=== PATIENT | female | born 1965 | race Caucasian/White ===

== ENCOUNTER → 2017-12-02 07:36 | Outpatient (CLI) | payer OTHER, SELFPAY ==
--- NOTE | 2017-12-02 | DI.ECHO.S_ITS ---
[facility]---------+ [facility] +---------+ : : [address] : : : : [id number] : : : : Phone: [phone]+ Echocardiogram Report + + :Name: NIKOLAI MOONEY Study Date: 12/02/2017 Height: 59 in : :[facility] Weight: 187 lb : : Gender: Female BSA: 1.8 m2 : :: 1965 Age: 52 yrs BP: 110/70 mmHg: :Reason For Study: Palpitations : :Ordering Physician: Cash : :Alfred Hatch Performed By: Jennifer Brandon : + + Interpretation Summary 1) Normal left ventricular size with mildly to moderately reduced systolic function (EF 40- 45%). 2) There is a significant dyssynchronous contraction pattern, consistent with a conduction abnormality. Inferior wall is hypokinetic. 3) Normal right ventricular size and function. 4) No significant valvular abnormalities. 5) Compared to the Echo done 09/17/2012, LV function has decreased from low normal to mildly to moderately reduced on this study. Procedure: A two-dimensional transthoracic echocardiogram with color flow and Doppler was performed. The study quality was technically adequate. Comparison is made with the echocardiogram of 09/17/2012. The patient was in normal sinus rhythm during the exam. The patient had a bundle branch block rhythm during the exam. Left Ventricle: The left ventricle is normal in size. There is normal left ventricular wall thickness. Left ventricular systolic function is mild to moderately reduced. The ejection fraction is estimated to be 40-45%. There is a significant dyssynchronous contraction pattern, consistent with a conduction abnormality. Assessment of diastolic parameters indicates a relaxation abnormality of the left ventricle, consistent with normal filling pressures. Right Ventricle: The right ventricle is normal in size and function. Atria: Both atria are normal in size. There is no Doppler evidence for an interatrial shunt. Mitral Valve: The mitral valve is normal in structure and function. There is trace mitral regurgitation. Aortic Valve: The aortic valve is not well visualized. There is no aortic valve stenosis. No aortic regurgitation is present. Tricuspid Valve: The tricuspid valve is not well visualized, but is grossly normal. There is a trace or physiologic amount of tricuspid regurgitation. The right ventricular systolic pressure is estimated at least 26 mmHg assuming a right atrial pressure of 8 mm Hg. Pulmonic Valve: The pulmonic valve is not well visualized. There is a trace or physiologic amount of pulmonic regurgitation. Great Vessels: The aortic root is normal size. The ascending aorta is normal in size. The aortic arch could not be visualized. The IVC is of normal diameter and collapses less than 50% with a sniff. This suggests a right atrial pressure of 8 mm Hg. Pericardium/ Pleura There is no pericardial effusion. MMode/2D Measurements & Calculations LVIDd: 5.3 cm LVOT diam: 2.0 cm LVIDs: 4.3 cm Ao root diam: 2.5 cm FS: 19.5 % asc Aorta Diam: 3.1 cm EPSS: 1.3 cm IVSd: 0.63 cm LVPWd: 0.84 cm LV mauro. diameter/BSA (cm/m^2): 3.0 LV sys. diameter/BSA (cm/m^2): 2.4 LA A2 area: 17.3 cm2 RA long axis: 4.4 cm LA A4 area: 18.7 cm2 RA area: 13.7 cm2 LA length (vol): 5.1 cm RA vol: 35.9 ml LA vol: 54.3 ml RA : 20.0 ml/m2 LA vol index: 30.3 ml/m2 IVC diam: 1.5 cm RVD1 (basal): 2.5 cm RVD2 (mid): 2.3 cm TAPSE: 2.3 cm Doppler Measurements & Calculations Ao V2 max: 156.6 cm/sec LVOT Max Fabio: 85.0 cm/sec Ao V2 mean: 105.3 cm/sec LV V1 max P.9 mmHg Ao max P.8 mmHg LV V1 VTI: 14.9 cm Ao mean P.2 mmHg TORIE(I,D): 1.7 cm2 Ao V2 VTI: 28.0 cm TORIE(V,D): 1.8 cm2 sev ratio: 0.53 TORIE indexed to BSA (cm^2/m^2): 0.98 MV E max fabio: 54.7 cm/sec TR max fabio: 208.9 cm/sec MV A max fabio: 75.6 cm/sec TR max P.5 mmHg MV E/A: 0.72 PA V2 max: 83.7 cm/sec Med Peak E' Fabio: 6.9 cm/sec PA V2 mean: 53.9 cm/sec E/E' med: 7.9 PA mean P.3 mmHg Lat Peak E' Fabio: 8.8 cm/sec PA Accel Time: 0.08 sec E/E' lat: 6.2 E/e' average: 7.0 MV dec time: 0.22 sec MV P1/2t: 65.2 msec MV /2t max fabio: 54.9 cm/sec MVA(2t): 3.4 cm2 Reading Physician:04:37 PM
== END ==
PROVIDERS: PCP Family Medicine; Visit Provider Hospitalist
DX: R00.2 Palpitations (principal)
CPT/HCPCS: 93306

== ENCOUNTER → 2018-09-02 14:36 | Outpatient (CLI) | payer OTHER, SELFPAY ==
--- NOTE | 2018-09-02 | DI.ECHO.S_ITS ---
[facility] [place] +---------+ Hospital +---------+ : : [address] : [address] [place] : : : : [id number] : : : : Phone: [phone]+ Echocardiogram Report + + :Name: NIKOLAI MOONEY Study Date: 09/02/2018 Height: 60 in : :[facility] Location: [facility] Weight: 188 lb : : Gender: Female BSA: 1.8 m2 : :: 1965 Age: 53 yrs BP: 122/88 mmHg: :Reason For Study: Left bundle-branch block : :Ordering Physician: Cash : :Alfred Hatch Performed By: Krystle Page : + + Interpretation Summary 1) Normal left ventricular size with borderline reduced systolic function (EF about 50%). 2) There is a significant dyssynchronous contraction pattern, consistent with a conduction abnormality. 3) Normal right ventricular size and function. 4) No significant valvular abnormalities. 5) Compared to the Echo done 12/02/2017, LVEF has improved from 40-45% to about 50% on this study. Procedure: A two-dimensional transthoracic echocardiogram with color flow and Doppler was performed. The study quality was technically adequate. The patient had a bundle branch block rhythm during the exam. The heart rate ranged between 69-80 bpm during the study. Left Ventricle: The left ventricle is normal in size. Left ventricular systolic function is borderline reduced. Left ventricular ejection fraction is estimated to be 50 +/- 5%. There is a significant dyssynchronous contraction pattern, consistent with a conduction abnormality. Right Ventricle: The right ventricle is normal in size and function. Atria: The left atrium is mildly dilated. Right atrial size is normal. There is no Doppler evidence for an interatrial shunt. Mitral Valve: The mitral valve is normal in structure and function. There is trace mitral regurgitation. Aortic Valve: The aortic valve is trileaflet. The aortic valve opens well. No aortic regurgitation is present. Tricuspid Valve: The tricuspid valve is normal in structure and function. There is a trace or physiologic amount of tricuspid regurgitation. Pulmonary artery pressures cannot be estimated because of the lack of a measurable TR jet velocity. Pulmonic Valve: The pulmonic valve is not well visualized. Great Vessels: The aortic root is normal size. The ascending aorta is normal in size. The pulmonary artery is not well visualized, but is probably normal size. The IVC is of normal diameter and collapses greater than 50% with a sniff. This suggests a low right atrial pressure of 3 mm Hg. Pericardium/ Pleura There is no pericardial effusion. There is no pleural effusion. MMode/2D Measurements & Calculations LVIDd: 5.0 cm LVOT diam: 2.1 cm LVIDs: 3.5 cm Ao root diam: 2.8 cm FS: 30.3 % asc Aorta Diam: 3.2 cm EPSS: 0.59 cm IVSd: 0.66 cm LVPWd: 0.83 cm LV mauro. diameter/BSA (cm/m^2): 2.7 LV sys. diameter/BSA (cm/m^2): 1.9 LA A2 area: 20.9 cm2 RA long axis: 4.7 cm LA A4 area: 21.3 cm2 RA area: 16.0 cm2 LA length (vol): 5.8 cm RA vol: 46.2 ml LA vol: 65.2 ml RA : 25.4 ml/m2 LA vol index: 35.8 ml/m2 IVC diam: 2.0 cm RVD1 (basal): 3.8 cm Doppler Measurements & Calculations Ao V2 max: 198.4 cm/sec LVOT Max Fabio: 97.0 cm/sec Ao V2 mean: 138.0 cm/sec LV V1 max P.8 mmHg Ao max P.8 mmHg LV V1 VTI: 16.7 cm Ao mean P.4 mmHg TORIE(I,D): 1.7 cm2 Ao V2 VTI: 35.2 cm TORIE(V,D): 1.8 cm2 sev ratio: 0.48 TORIE indexed to BSA (cm^2/m^2): 0.94 MV E max fabio: 84.9 cm/sec PA V2 max: 121.6 cm/sec MV A max fabio: 81.3 cm/sec PA V2 mean: 89.2 cm/sec MV E/A: 1.0 PA mean P.4 mmHg Med Peak E' Fabio: 7.1 cm/sec E/E' med: 12.0 Lat Peak E' Fabio: 12.3 cm/sec E/E' lat: 6.9 E/e' average: 9.5 MV dec time: 0.19 sec MV P1/2t: 55.8 msec MV P1/2t max fabio: 84.9 cm/sec SV(LVOT): 60.1 ml MVA(P1/2edward): 3.9 cm2 Reading Physician:04:20 PM
== END ==
PROVIDERS: PCP Family Medicine; Visit Provider Hospitalist
DX: I44.7 Left bundle-branch block, unspecified (principal)
CPT/HCPCS: 93307

== ENCOUNTER 2018-10-06 12:49 | Day surgery (SDC) | payer OTHER, SELFPAY ==
--- NOTE | 2018-10-06 | PATH_ITS ---
[facility] Accession Number: [id number] . 01 Material submitted: . PART A: esophagus - ESOPHAGEAL BIOPSIES PART B: gastrointestinal site - GASTRIC BIOPSIES . 01 Clinical history: . B: GASTRIC BIOPSIES FOR H.PYLORI . 02 Diagnosis: A. Specimen Designated Esophageal Biopsies: Fragments of gastric antral and fundic mucosa with hyperemia, but negative for significant inflammation (see comment). Negative for evidence of Helicobacter on H/E stain. Negative for intestinal metaplasia. Negative for dysplasia and malignancy. . B. Specimen Designated Gastric Biopsies: Fragments of squamous epithelium with no glandular epithelium identified, negative for atypia (see comment). Negative for squamous intraepithelial eosinophils. [facility]/10/08/2018 . 02 Comment: It appears that these two specimens were switched at the time of biopsy with part A designated esophageal biopsies, but actually representing gastric biopsies and part B designated gastric biopsies actually representing esophageal biopsies. . 02 Electronically signed: . Juan Ladd MD, Pathologist NPI- [id number] . 01 Gross description: . Part A: ESOPHAGEAL BIOPSIES: Received in formalin are 2 fragment(s) of olsen, soft tissue measuring 0.5 x 0.3 x 0.1 cm to 0.2 x 0.2 x 0.1 cm submitted entirely in 1 cassette(s) Part B: GASTRIC BIOPSIES: Received in formalin are 2 fragment(s) of olsen, soft tissue measuring 0.3 x 0.2 x 0.1 cm to 0.2 x 0.1 x 0.1 cm submitted entirely in 1 cassette(s) /CKI /CKI . 02 Pathologist provided ICD-10: R10.13 . 02 CPT . 553419, [id number] Performed at: [address] [place] [address] [address], [place], [place] [id number] MD Mando Hernandez MD Phone: [phone] Performed at: 02 [facility] [place] [address] [place] [id number] MD Roxana Aden MD Phone: [phone]
[2018-10-06 14:00] VITALS: BP 110/65; PULSE 77; RESP 16; TEMP 37.1; O2SAT 97; BMI 37.6
[2018-10-06] MEDS: SODIUM CHLORIDE 0.9% 1,000 ML 100 ML IV (14:10)
--- NOTE | 2018-10-06 14:35 | PM.HP.1 ---
History of Present Illness Date Patient Seen: 10/06/18 Time Patient Seen: 14:35 Chief complaint: [id number] Narrative: Dysphagia Patient History Medical History (Updated 10/06/18 @ 14:36 by Micky Pearson MD) Anxiety (Acute) Arthritis (Acute) Celiac disease (Acute) Depression (Acute) GE reflux (Acute) History of colon polyps (Acute) Social History household members: friend(s) Family & Social History Social History: household members friend(s) Meds Home Medications Medication Instructions Recorded Confirmed Type lisinopril 20 mg PO QDAY #0 11/12/10 10/06/18 History ESOMEPRAZOLE SODIUM (NEXIUM) 20 mg PO BID #0 04/15/11 10/06/18 History LACTOBACILLUS ACIDOPHILUS 1 cap/day PO DAILY #0 04/15/11 10/06/18 History (#ACIDOPHILUS) [MEGAZYME] PO TID #0 04/15/11 History tramadol 50 mg PO PRN #0 04/15/11 10/06/18 History [GOODY'S POWDER] #0 06/25/16 History verapamil 40 mg PO DAILY 10/06/18 10/06/18 History Allergies Allergy/AdvReac Type Severity Reaction Status Date / Time gluten [GLUTEN] Allergy Unknown Verified 10/06/18 13:54 Exam Vital Signs (past 8 hours): - 10/06/18 14:00 Temperature 98.7 F Pulse Rate 77 Respiratory Rate 16 Blood Pressure 110/65 Pulse Oximetry 97 Oxygen Delivery Method Room Air Narrative Exam Narrative: Oropharynx free of lesions Chest clear to auscultation percussion Cardiac exam reveals no S3 or murmur Assessment & Plan Assessment & Plan narrative: Dysphagia rule out mechanical cause such as a Schatzki's ring or peptic stricture or eosinophilic esophagitis. Risks, benefits, alternatives have been explained.
--- NOTE | 2018-10-06 14:39 | PM.OP.ENDO ---
Operative Date/Time/Diagnoses Date of procedure: 10/06/18 Time of procedure: 14:39 Pre-op diagnosis: See indication and findings Procedure & Clinicians Study performed: EGD Same procedure as scheduled: Yes Indications: Dysphagia Surgeon: Micky Pearson Procedure Notes Procedure in detail: After informed consent was obtained the patient was placed in left lateral decubitus position. The video upper scope placed in the oropharynx with the patient's health swallowed into the esophagus. The esophagus stomach and duodenum were carefully examined. On withdrawal, retroflexed view the GE junction was performed. The scope was removed. The patient tolerated procedure well. Blood loss none Complications none Sedation, MAC Findings 1. Normal esophagus with no evidence of esophagitis. There were however very faint longitudinal grooves and therefore biopsies were taken to rule out eosinophilic esophagitis 2. There may have been a slight Schatzki's ring distally and therefore was elected to perform dilation with [address] without difficulty.. 3. Patchy striped erythema in the antrum. Biopsies taken to rule out Helicobacter 4. Normal duodenal bulb and sweep We will await biopsy results and see how she does with the dilation. We will be in touch by telephone.
[2018-10-06 15:45] VITALS: BP 98/61; PULSE 93; RESP 21; TEMP 36.8; O2SAT 91
[2018-10-06 15:51] VITALS: BP 109/57; PULSE 80; RESP 13; O2SAT 93
[2018-10-06 15:53] VITALS: BP 122/54; PULSE 82; RESP 13; O2SAT 93
[2018-10-06 16:02] VITALS: BP 121/74; PULSE 73; RESP 14; O2SAT 95
== END 2018-10-06 16:21 | disposition home or self-care (01) ==
LOC: ENDO 12:56
PROVIDERS: PCP Family Medicine; Visit Provider Internal Medicine Gastroenterology
PROC: 0DJ08ZZ Inspection of Upper Intestinal Tract, Via Natural or Artificial Opening Endoscopic (ICD-10-PCS; CPT 43235; principal; 2018-10-06 15:00)
DX: R13.10 Dysphagia, unspecified (principal); F41.9 Anxiety disorder, unspecified; K90.0 Celiac disease; F32.9 Major depressive disorder, single episode, unspecified; K21.9 Gastro-esophageal reflux disease without esophagitis
CPT/HCPCS: 43248; 43239; 88305; J2704; J3010

== ENCOUNTER → 2018-12-28 16:37 | Outpatient (CLI) | payer OTHER, SELFPAY ==
--- NOTE | 2018-12-28 | DI.MRI.S_ITS ---
PROCEDURE: MR WRIST LT WO CON INDICATIONS: PAIN IN LEFT FINGERS TECHNIQUE: Noncontrast coronal proton density fast spin echo and T2 fast spin echo with fat saturation; coronal 3-D gradient echo, axial T1 spin echo and T2 fast spin echo with fat saturation, sagittal T1 spin echo through the wrist. COMPARISON: None. FINDINGS: Image quality: Excellent. Bones and cartilage: Trapezium is not visualized with susceptibility artifact seen in the adjacent first metacarpal base concerning for prior trapezial resection, clinical correlation is recommended. Diffuse osteoarthritic changes throughout carpal bones are seen with extensive marrow edema involving scaphoid, lunate, trapezoid, capitate and hamate. No discrete fracture line is identified. Intraosseous cyst formation involving the proximal scaphoid, capitate, lunate and hamate are seen. There is widening of scapholunate interval with slight proximal migration of capitate. Dorsal tilting of the lunate is also noted suggestive of dorsal intercalated segment instability. No acute fracture or dislocation is seen. Osteoarthritic changes are noted throughout wrist joints. Carpal ligaments: There is suggestion of ruptured scapholunate ligamen. Lunotriquetral ligament is intact. In the absence of intra-articular contrast, the extrinsic carpal ligaments are not well identified. On sagittal images, the pisohamate ligament appears intact. Triangular fibrocartilage complex: There is signal abnormality involving central and lateral portion of triangular fibrocartilage suggestive of triangular fibrocartilage tear near its radial insertion.. The adjacent meniscal homolog appears normal in the absence of intra-articular contrast. The extensor carpi ulnaris tendon is normal in location and morphology. Tendons and soft tissues: The carpal tunnel structures appear normal, including the median nerve. The ulnar nerve appears normal within Guyon's canal. All six extensor tendon compartments demonstrate normal morphology, without pathologic tendon sheath fluid. No soft tissue ganglion cysts. IMPRESSION: 1. Suggestion of prior resection of trapezium, suggest clinical correlation. 2. Osteoarthritic changes throughout wrist joints. Extensive marrow edema throughout visualized carpal bones with no discrete fracture line seen suggestive of stress reaction. Intraosseous cyst formation in proximal scaphoid, lunate, capitate and hamate are seen, erosive changes secondary to inflammatory arthropathy cannot be excluded. No definite acute fracture or dislocation. 3. Torn scapholunate ligament with widening of scapholunate interval and proximal migration of capitate suggestive of scapholunate advanced collapse (SLAC). There is also dorsal tilting of the lunate with suggestion of dorsal into dilated segment instability (DISI). 4. Suggestion of tracheal fibrocartilage tear near its radial insertion. Wrist tendons are grossly intact. Dictated by: Rick Mcdaniel M.D. on 12/30/2018 at 11:05 Approved by: Rick Mcdaniel M.D. on 12/30/2018 at 13:35
--- NOTE | 2018-12-28 | DI.MRI.S_ITS ---
PROCEDURE: MR HAND LT WO CON INDICATIONS: PAINB IN LEFT FINGERS TECHNIQUE: Coronal and axial T1 spin echo and T2 fast spin echo with fat saturation. Post-contrast coronal and axial T1 spin echo with fat saturation images through the left hand and wrist. COMPARISON: None. FINDINGS: Image quality: Excellent. Bones and cartilage: Extensive marrow edema throughout carpal bones are seen with suggestion of dorsal intercalated segment instability and possible scapholunate advance collapse better evaluated on MR of wrist study. Osteophytic changes and postsurgical changes are noted at first metacarpal base. Osteoarthritic changes are noted throughout MCP joints and interphalangeal joints. No gross bony erosive changes are noted. No edema or fracture. Synovium: No abnormal synovial thickening is seen. No significant joint fluid is seen in MCP joints or interphalangeal joints. Soft tissues: Flexor and extensor tendons of fingers are grossly intact. Medial and lateral collateral ligaments of interphalangeal joints and MCP joints are grossly intact. IMPRESSION: 1. Please correlate with MRI of left wrist for further evaluation of internal derangement within the wrist. 2. No fracture or dislocation in the metacarpal bones or phalanges. No bony erosive changes are seen. 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 3. Tendons and ligaments are grossly intact. 4. Post surgical changes involving first metacarpal base. Dictated by: Rick Mcdaniel M.D. on 12/30/2018 at 13:40 Approved by: Rick Mcdaniel M.D. on 12/30/2018 at 13:46
== END ==
PROVIDERS: PCP Family Medicine; Visit Provider Family Medicine
DX: M79.645 Pain in left finger(s) (principal); S63.592A Other specified sprain of left wrist, initial encounter
CPT/HCPCS: 73218; 73221

== ENCOUNTER → 2019-11-03 12:02 | Outpatient (CLI) | payer OTHER, SELFPAY ==
--- NOTE | 2019-11-03 | DI.MG.S_ITS ---
BILATERAL DIGITAL SCREENING MAMMOGRAM 3D/2D WITH CAD: 11/03/2019 CLINICAL: Routine screening. Family history of breast cancer. Comparison is made to exams dated: 12/25/2017 mammogram, 02/21/2015 mammogram, 12/27/2014 mammogram, and 02/23/2012 mammogram - [facility]. There are scattered fibroglandular elements in both breasts. Current study was also evaluated with a Computer Aided Detection (CAD) system. No significant masses, calcifications, or other findings are seen in either breast. There has been no significant interval change. IMPRESSION: NEGATIVE There is no mammographic evidence of malignancy. A 1 year screening mammogram is recommended. This exam was interpreted at Station ID: [id number]. NOTE: For mammograms, a report in lay terms will be sent to the patient. Approximately 15% of breast malignancies will not be visualized mammographically. In the management of a palpable breast mass, a negative mammogram must not discourage biopsy of a clinically suspicious lesion. Electronically Signed By: Abi haynes/catalina:11/03/2019 13:47:44 letter sent: Normal Exam ACR BI-RADS Category 1: Negative [id number]
== END ==
PROVIDERS: PCP Family Medicine; Referring Provider Family Medicine; Visit Provider Family Medicine
DX: Z12.31 Encounter for screening mammogram for malignant neoplasm of breast (principal); Z80.3 Family history of malignant neoplasm of breast
CPT/HCPCS: 77063; 77067

== ENCOUNTER 2020-02-06 19:05 | Observation (INO) | payer OTHER, SELFPAY ==
[2020-02-06] VITALS (27 sets, daily range): BP systolic 120–166; BP diastolic 58–88; PULSE 76–116; RESP 11–43; TEMP 36.7; O2SAT 93–99; BMI 39.4
--- NOTE | 2020-02-06 19:06 | DI.RAD.S_ITS ---
PROCEDURE: XR CHEST 1V INDICATIONS: Chest Pain TECHNIQUE: One view of the chest was acquired. COMPARISON: [facility], CHEST 1 VIEW, 06/25/2016, 17:15. [facility], CHEST 2 VIEW, 06/08/2015, 14:56. FINDINGS: Surgical changes and devices: None. Lungs and pleura: Lungs are clear. No pleural effusions or pneumothorax. Mediastinum: Mediastinal contours appear normal. Heart size is normal. Bones and chest wall: No suspicious bony lesions. Overlying soft tissues appear unremarkable. IMPRESSION: Normal for age, source of current chest pain symptoms is not seen. Dictated by: Roger Alvarado M.D. on 02/06/2020 at 19:36 Approved by: Roger Alvarado M.D. on 02/06/2020 at 19:37
--- NOTE | 2020-02-06 19:12 | ED_ITS ---
HPI - Chest Pain General Chief Complaint: Chest Pain Stated Complaint: Chest Pain Time Seen by Provider: 02/06/20 19:06 Source: EMS Mode of arrival: EMS Limitations: no limitations History of Present Illness HPI narrative: 54-year-old female nonsmoker with history of hypertension and hyperlipidemia as well as GERD and anxiety presents with a chief complaint of retrosternal chest pressure that woke her from sleep about 1 hour prior to arrival and seems to have navigated to the left side of her chest. She denies any obvious provocation or palliation. She denies any exertional symptoms. She is not dizzy nor weak or lightheaded. She denies any unexplained diaphoresis or shortness of breath. She was given full-dose aspirin prior to her arrival. She has known history of LBBB and prehospital EKG shows none of Sgarbossa's criteria suggested ischemic disease Related Data Home Medications Medication Instructions Recorded Confirmed lisinopril 20 mg PO QDAY #0 11/12/10 10/06/18 ESOMEPRAZOLE SODIUM (NEXIUM) 20 mg PO BID #0 04/15/11 10/06/18 LACTOBACILLUS ACIDOPHILUS 1 cap/day PO DAILY #0 04/15/11 10/06/18 (#ACIDOPHILUS) [MEGAZYME] PO TID #0 04/15/11 tramadol 50 mg PO PRN #0 04/15/11 10/06/18 [GOODY'S POWDER] #0 06/25/16 verapamil 40 mg PO DAILY 10/06/18 10/06/18 Allergies Allergy/AdvReac Type Severity Reaction Status Date / Time gluten [GLUTEN] Allergy Unknown Verified 10/06/18 13:54 Review of Systems Constitutional Constitutional: Denies chills, Denies fatigue, Denies fever(s), Denies frequent falls, Denies lethargy and Denies weakness Eyes Eyes: Denies change in vision, Denies eye discharge, Denies irritation and D enies loss of vision ENT Ears, Nose, Mouth, and Throat: Denies change in voice, Denies dizziness, Denies neck pain, Denies sore throat and Denies throat swelling Cardiovascular Cardiovascular: Reports chest pain, Reports chest pain at rest, Denies irregular heart rhythm, Denies lightheadedness, Denies palpitations, Denies dyspnea, Denies dyspnea on exertion and Denies orthopnea Respiratory Respiratory: Denies cough, Denies dyspnea, Denies dyspnea on exertion and Denies wheezing Gastrointestinal Gastrointestinal: Denies abdominal pain, Denies change in bowel habits, Denies diarrhea, Denies nausea and Denies vomiting Musculoskeletal Musculoskeletal: Denies neck pain and Denies numbness Integumentary/Breasts Skin/Breast: Denies pruritus, Denies erythema, Denies rash and Denies wounds Neurologic Neurologic: Denies behavioral changes, Denies confusion, Denies dizziness, Denies frequent falls, Denies loss of vision, Denies numbness and Denies weakness Psychiatric Psychiatric: Denies anxiety, Denies behavioral changes, Denies confusion, Denies depression, Denies homicidal ideation and Denies suicidal ideation Endocrine Endocrine: Denies fatigue, Denies flushing and Denies palpitations Hematologic/Lymphatic Hematologic/Lymphatic: Denies easy bruising Allergic/Immunologic Allergic/Immunologic: Denies urticaria, Denies throat swelling and Denies wheezing Patient History Medical History Anxiety Arthritis Celiac disease Depression GE reflux History of colon polyps Social History household members: friend(s) Smoking Status: Never smoker Smoking Status: Never smoker alcohol intake frequency: 3 or more drinks per day Substance Use Type: does not use Exam Narrative Exam Narrative: GENERAL: [54] year old patient appears stated age. Well- nourished, well-developed patient, in mild distress. HEAD: Atraumatic. Normocephalic. EYES: Pupils equal round and reactive. Extraocular motions intact. No scleral icterus. No injection or drainage. ENT: Nose without bleeding, purulent drainage. Throat without erythema, tonsillar hypertrophy or exudate. Airway patent. NECK: Trachea midline. Non tender CARDIOVASCULAR: Regular rate and rhythm without murmurs, gallops, or rubs. No reproducible pain on palpation of epigastrium or anterior chest RESPIRATORY: Clear to auscultation. Breath sounds equal bilaterally. No wheezes, rales, or rhonchi. GASTROINTESTINAL: Abdomen soft, non-tender, nondistended. EXTREMITIES: No edema or joint tenderness. BACK: Nontender without deformity or crepitance. No flank tenderness. NEURO: AOx3. SKIN: No rash or erythema of visible areas Initial Vital Signs Initial Vital Signs: Vital Signs Temperature 98.0 F 02/06/20 19:06 Pulse Rate 86 02/06/20 19:06 Respiratory Rate 16 02/06/20 19:06 Blood Pressure 145/81 H 02/06/20 19:06 Pulse Oximetry 99 02/06/20 19:06 Scores HEART Score Heart Score history: Moderately Suspicious Heart Score EKG: Non-Specific repolarization disturbance Heart Score Age: 45-64 years old Heart Score risk factors: 1-2 risk factors Heart Score troponin: < or = to normal limit Heart Score Total: 4 Course Orders Ordered: ED Orders 02/06/20 19:06 XR chest 1V Stat EKG-12 Lead Stat 02/06/20 19:21 Complete Blood Count AUTO DIFF Stat Comprehensive Metabolic Panel Stat D Dimer Stat Lipase Stat NT-proBNP (BNP-Adult 18+) Stat Troponin & CK Cardiac Panel Stat 02/06/20 20:25 Troponin I Stat 02/06/20 20:27 EKG-12 Lead Stat Sodium Chloride (Normal Saline 0.9%) 1,000 mls @ 150 mls/hr IV CONT KAROL Last Admin: 02/06/20 19:25 Dose: 150 mls/hr Documented by: ROSINA Nitroglycerin (Nitroglycerin 0.4 Mg Sl Tab) 0.4 mg SL [id number] PRN PRN Reason: Chest Pain Last Admin: 02/06/20 19:51 Dose: 0.4 mg Documented by: Admin: 02/06/20 19:27 Dose: 0.4 mg Documented by: ROSINA Discontinued Medications Al Hydrox/Mg Hydrox/Simethicone 20 ml/ Lidocaine HCl 15 ml 0 ml PO NOW ONE Stop: 02/06/20 20:28 Last Admin: 02/06/20 20:38 Dose: 35 ml Documented by: ROSINA Lorazepam (Lorazepam 2 Mg/Ml Inj) 1 mg IV NOW ONE Stop: 02/06/20 23:17 Last Admin: 02/06/20 23:34 Dose: 1 mg Documented by: ROSINA Ondansetron HCl (Ondansetron 4 Mg/2 Ml Inj) 4 mg IV NOW ONE Stop: 02/06/20 22:26 Last Admin: 02/06/20 22:38 Dose: 4 mg Documented by: ROSINA Pantoprazole Sodium (Pantoprazole 40 Mg Vial) 40 mg IV NOW ONE Stop: 02/06/20 20:28 Last Admin: 02/06/20 20:38 Dose: 40 mg Documented by: ROSINA Reevaluation(s) Reevaluation #1: patient did have significant improvement after GI cocktail, but pressure coming back Time: 21:29 Vital Signs Vital signs: Vital Signs - 8 hr 02/06/20 19:06 02/06/20 19:07 02/06/20 19:27 Temperature 98.0 F Pulse Rate 86 76 Respiratory Rate 16 25 H Blood Pressure 145/81 H 147/75 H Pulse Oximetry 99 96 97 02/06/20 19:30 02/06/20 19:35 02/06/20 19:40 Temperature Pulse Rate 83 85 Respiratory Rate 19 20 Blood Pressure 134/67 124/68 138/88 Pulse Oximetry 94 95 93 02/06/20 19:45 02/06/20 19:51 02/06/20 19:55 Temperature Pulse Rate 77 85 Respiratory Rate 25 H 23 20 Blood Pressure 149/84 H 130/69 120/58 L Pulse Oximetry 96 95 96 02/06/20 20:00 02/06/20 20:05 02/06/20 20:10 Temperature Pulse Rate 83 80 81 Respiratory Rate 12 14 12 Blood Pressure 138/68 125/66 147/74 H Pulse Oximetry 95 95 94 02/06/20 20:15 02/06/20 20:20 02/06/20 20:25 Temperature Pulse Rate 79 81 77 Respiratory Rate 17 18 Blood Pressure 152/77 H 162/85 H 161/79 H Pulse Oximetry 96 95 97 02/06/20 20:30 02/06/20 20:35 02/06/20 20:40 Temperature Pulse Rate 78 78 87 Respiratory Rate 13 11 L 24 Blood Pressure 166/84 H 152/84 H 151/79 H Pulse Oximetry 95 95 95 02/06/20 20:45 02/06/20 20:46 02/06/20 21:00 Temperature Pulse Rate 86 Respiratory Rate 22 24 43 H Blood Pressure 165/86 H 164/84 H Pulse Oximetry 94 94 96 MDM - Chest Pain Lab Data Result diagrams: 02/06/20 19:21 02/06/20 19:21 Labs: Lab Results 02/06/20 02/06/20 02/06/20 Range/Units 19:21 19:21 19:21 WBC 7.1 (4.5-11.0) X10^3/uL RBC 3.89 L (4.0-5.2) X10^6/uL Hgb 13.2 (12.0-16.0) g/dL Hct 38.0 (36-46) % MCV 97.6 (80-100) fL MCH 33.9 (26-34) PG MCHC 34.7 (30-36) % RDW 13.9 (11.6-14.8) % Plt Count 423 H (150-400) X10^3/uL Neut % (Auto) 71.1 (50-75) % Lymph % (Auto) 17.2 L (25-40) % Drew % (Auto) 7.9 (3-14) % Eos % (Auto) 2.4 (2-4) % Baso % (Auto) 1.4 (0-2) % Neut # (Auto) 5000 (6206-8171) /uL Lymph # (Auto) 1200 (5741-0860) /uL Drew # (Auto) 600 (0-900) /uL Eos # (Auto) 200 (0-450) /uL Baso # (Auto) 100 (0-100) /uL D-Dimer 215 (<230) ng/mL Sodium 134 L (137-145) mmol/L Potassium 3.7 (3.4-5.1) mmol/L Chloride 96 L (98-107) mmol/L Carbon Dioxide 32 (22-32) mmol/L BUN 5 L (7-17) mg/dL Creatinine 0.59 (0.52-1.04) mg/dL Estimated GFR > 60.0 (>60) mL/min BUN/Creatinine Ratio 8.5 (6-22) Glucose 110 H (70-100) mg/dL Calcium 9.8 (8.4-10.2) mg/dL Total Bilirubin 0.4 (0.2-1.3) mg/dL AST 98 H (14-36) IU/L ALT 80 H (<35) IU/L Alkaline Phosphatase 73 (38-126) U/L Total Creatine Kinase 86 (30-135) U/L CK-MB (CK-2) TNP CK-MB (CK-2) Rel Index TNP Troponin I < 0.012 (0.01-0.034) ng/mL NT-Pro-B Natriuret Pep 179 H (<125) pg/mL Total Protein 7.9 (6.3-8.2) g/dL Albumin 4.5 (3.5-5.0) g/dL Globulin 3.4 (1.7-4.1) g/dL Albumin/Globulin Ratio 1.3 (1.0-2.8) Lipase 55 (23-300) U/L 11//20 Range/Units 20:25 WBC (4.5-11.0) X10^3/uL RBC (4.0-5.2) X10^6/uL Hgb (12.0-16.0) g/dL Hct (36-46) % MCV (80-100) fL MCH (26-34) PG MCHC (30-36) % RDW (11.6-14.8) % Plt Count (150-400) X10^3/uL Neut % (Auto) (50-75) % Lymph % (Auto) (25-40) % Drew % (Auto) (3-14) % Eos % (Auto) (2-4) % Baso % (Auto) (0-2) % Neut # (Auto) (8915-2890) /uL Lymph # (Auto) (4871-3393) /uL Drew # (Auto) (0-900) /uL Eos # (Auto) (0-450) /uL Baso # (Auto) (0-100) /uL D-Dimer (<230) ng/mL Sodium (137-145) mmol/L Potassium (3.4-5.1) mmol/L Chloride (98-107) mmol/L Carbon Dioxide (22-32) mmol/L BUN (7-17) mg/dL Creatinine (0.52-1.04) mg/dL Estimated GFR (>60) mL/min BUN/Creatinine Ratio (6-22) Glucose (70-100) mg/dL Calcium (8.4-10.2) mg/dL Total Bilirubin (0.2-1.3) mg/dL AST (14-36) IU/L ALT (<35) IU/L Alkaline Phosphatase (38-126) U/L Total Creatine Kinase (30-135) U/L CK-MB (CK-2) CK-MB (CK-2) Rel Index Troponin I < 0.012 (0.01-0.034) ng/mL NT-Pro-B Natriuret Pep (<125) pg/mL Total Protein (6.3-8.2) g/dL Albumin (3.5-5.0) g/dL Globulin (1.7-4.1) g/dL Albumin/Globulin Ratio (1.0-2.8) Lipase (23-300) U/L MDM Narrative Medical decision making narrative: Patient's story regarding the onset and description of her chest pressure have concerning elements. She does have EKGs that are demonstrating no acute ischemia and unchanged over the duration of her visit as well as 2 troponins by 2 hours with no change. The timing, her risk, and story are such that discharge home is unsafe. She requires hospitalization for further evaluation, with labs, likely echo and stress test. Discharge Plan Departure Patient Disposition: Admitted as Observation Clinical Impression: Chest pain Admit Date/Time: 02/07/20 00:55 Admit Provider: Rafael Duran
[2020-02-06] MEDS: SODIUM CHLORIDE 0.9% 1,000 ML 150 ML IV (19:25)
[2020-02-06] MEDS: NITROGLYCERIN 0.4 MG SL TAB SL ×2 (19:27→19:51)
[2020-02-06 19:28] LABS: Add Manual Diff / Slide Review NO; Basophils Absolute Auto 100 /uL (0-100); Basophils Percent Auto 1.4 % (0-2); Eosinophils Absolute Auto 200 /uL (0-450); Eosinophils Percent Auto 2.4 % (2-4); Hemoglobin 13.2 g/dL (12.0-16.0); Lymphocytes Absolute Auto 1200 /uL (1100-4500); Lymphocytes Percent Auto 17.2 % (25-40); Mean Corpuscular HGB Conc 34.7 % (30-36); Mean Corpuscular Hemoglobin 33.9 PG (26-34); Mean Corpuscular Volume 97.6 fL (80-100); Monocytes Absolute Auto 600 /uL (0-900); Monocytes Percent Auto 7.9 % (3-14); Neutrophils Absolute Auto 5000 /uL (1500-7000); Neutrophils Percent Auto 71.1 % (50-75); Platelet Count 423 X10^3/uL (150-400); Red Blood Cell Count 3.89 X10^6/uL (4.0-5.2); Red Cell Distribution Width 13.9 % (11.6-14.8); White Blood Cell Count 7.1 X10^3/uL (4.5-11.0)
[2020-02-06 19:46] LABS: D Dimer 215 ng/mL (<230)
[2020-02-06 19:47] LABS: Alanine Aminotransferase 80 IU/L (<35); Albumin 4.5 g/dL (3.5-5.0); Albumin Globulin Ratio 1.3 (1.0-2.8); Alkaline Phosphatase 73 U/L (38-126); Aspartate Aminotransferase 98 IU/L (14-36); BUN Creatinine Ratio 8.5 (6-22); Bilirubin Total 0.4 mg/dL (0.2-1.3); Blood Urea Nitrogen 5 mg/dL (7-17); Calcium 9.8 mg/dL (8.4-10.2); Carbon Dioxide 32 mmol/L (22-32); Chloride 96 mmol/L (98-107); Creatine Kinase 86 U/L (30-135); Estimated Glomerular Filt Rate > 60.0 mL/min (>60); Globulin 3.4 g/dL (1.7-4.1); Glucose 110 mg/dL (70-100); HEMOLYSIS < 15 (0-50); Lipase 55 U/L (23-300); Potassium 3.7 mmol/L (3.4-5.1); Sodium 134 mmol/L (137-145); Total Protein 7.9 g/dL (6.3-8.2)
--- NOTE | 2020-02-06 19:52 | PC.NURSE ---
Pt given nitro, reported pain down from 4/10 to 3/10, 2nd nitro given.
[2020-02-06 19:59] LABS: NT-proBNP (BNP-Adult 18+) 179 pg/mL (<125); Troponin I < 0.012 ng/mL (0.01-0.034)
--- NOTE | 2020-02-06 20:11 | PC.NURSE ---
Reassess pain after 2nd nitro, pain is unchanged, trops are neg and pt has declined any further nitro doses at this time.
[2020-02-06] MEDS: MAG HYDROX/ALUMINUM/SIMETH SUS 20 ML, LIDOCAINE VISCOUS 2% 15 ML PO (20:38)
[2020-02-06] MEDS: PANTOPRAZOLE 40 MG VIAL IV (20:38)
--- NOTE | 2020-02-06 21:18 | PC.NURSE ---
Pt recieved GI cocktail, reported improvement shortly after, pt now reports the numbness is gone and the tightness is back, after eating I am now burping.
[2020-02-06 21:52] LABS: Troponin I < 0.012 ng/mL (0.01-0.034)
[2020-02-06] MEDS: ONDANSETRON 4 MG/2 ML INJ IV (22:38)
[2020-02-06] MEDS: LORazepam 2 MG/ML INJ 1 MG IV (23:34)
[2020-02-07] VITALS (13 sets, daily range): BP systolic 112–172; BP diastolic 60–89; PULSE 72–100; RESP 12–20; TEMP 36.2–37.3; O2SAT 88–97; BMI 39.4
[2020-02-07 01:40] LABS: COVID19 -Nasal RAPID Negative (Negative)
--- NOTE | 2020-02-07 02:49 | P.HP_ITS ---
History of Present Illness History of Present Illness Date Patient Seen: 02/07/20 Time Patient Seen: 02:00 Chief complaint: Chest Pain Narrative: Ms. Maxx Islas is a 54-year-old female with a past medical history significant for hypertension, palpitations, GERD, anxiety and depression, headaches and celiac disease who presents to the ER for chest pain. the patient reports an onset of point tenderness under the right medial breast at approximately 4:00 p.m.. The patient thought this was related to her GERD and took Estefania-White Bird without relief and took another dose of Estefania-White Bird. She still had no relief so took Tums. She subsequently developed a bandlike sensation across her lower chest which precipitated a panic attack. She presently describes her discomfort as a tightness like an esophageal spasm. The patient has had previous episodes of chest pressure. The patient denies complaints of dizziness, shortness of breath, palpitations, nausea or diaphoresis. She does endorse taking frequent doses of nonsteroidal anti-inflammatories for her arthritis and treats her gastric irritation with Nexium 40 mg twice daily. She has no other complaints a recent illness and no fevers or chills. Denies nasal congestion or sore throat. She has chest pain as above but denies palpitations with a history of arrhythmias treated with verapamil. She denies shortness of breath cough or wheezing and has no abdominal pain, changes in bowel or bladder habits. Upon arrival the ER the patient is afebrile with a temperature 98.0?, heart rate of 86, blood pressure 145/81, respirations 16 saturating 99% on room air. A chest x-ray is obtained which is found to be normal for patient age, 12 lead EKG is obtained finding a sinus rhythm at a rate of 77 with a left bundle branch block and left axis unchanged from prior tracing. On laboratory analysis he has white count of 7.1, hemoglobin of 13.2, hematocrit of 35.0 and platelets of 423. There is no shift. Electrolytes are all within normal limits she has a BUN of 5 and a creatinine of 0.59. Her nonfasting glucose is 110. He has a bilirubin of 0.4, AST of 98, ALT of 80 and alkaline phosphatase of 73. Her lipase is 55. She has a D-dimer of 215. Her troponin is less than 0.012 and her proBNP is 179. The patient received 1 nitroglycerin EN route to the ER via EMS and received 2 more in the emergency department is now complaining of significant headache. She also received a GI cocktail, Protonix 40 mg, Zofran 4 mg and Ativan IV. The patient's symptoms have all but abated. Patient is admitted to the hospital for chest pain. Patient History Medical History (Updated 02/07/20 @ 09:04 by SANDRA Sanchez) Anxiety Arthritis Celiac disease Depression Frequent headaches GE reflux History of colon polyps Hypertension Palpitations Surgical History (Updated 02/07/20 @ 09:04 by SANDRA Sanchez) History of colonoscopy History of esophagogastroduodenoscopy (EGD) History of surgery on wrist Hx of EM Family & Social History Family History (Updated 02/07/20 @ 09:05 by SANDRA Sanchez) Father Cancer Mother Cancer Grandfather Cardiovascular disease Social History: household members friend(s) Prior Living Arrangements House Safety & Behavioral: Feels Safe in Current Yes Environment Been Physically Hurt or No Threatened By a Person Suicidal Ideation Description None Suicide Plan Description No Plan Tobacco & Substance use: Smoking Status Former smoker alcohol intake current alcohol intake frequency 3 or more drinks per day Substance Use Type does not use Meds Home Medications and Allergies Home Medications Medication Instructions Recorded Confirmed Type lisinopril 20 mg PO QDAY #0 11/12/10 02/07/20 History ESOMEPRAZOLE SODIUM (NEXIUM) 20 mg PO BID #0 04/15/11 02/07/20 History LACTOBACILLUS ACIDOPHILUS 1 cap/day PO DAILY #0 04/15/11 02/07/20 History (#ACIDOPHILUS) [MEGAZYME] PO TID #0 04/15/11 History tramadol 50 mg PO PRN #0 04/15/11 02/07/20 History [GOODY'S POWDER] #0 06/25/16 History verapamil 40 mg PO DAILY 10/06/18 02/07/20 History cetirizine 5 mg PO Q OTHER DAY 02/07/20 02/07/20 History Allergies Allergy/AdvReac Type Severity Reaction Status Date / Time gluten [GLUTEN] Allergy Unknown Verified 10/06/18 13:54 Review of Systems Review of Systems ROS: Yes All systems reviewed with the patient and are negative except as otherwise documented Exam Vital Signs (past 8 hours): - 02/07/20 01:00 02/07/20 01:30 02/07/20 01:58 Temperature Pulse Rate 91 H 89 87 Respiratory Rate 17 12 14 Blood Pressure 132/60 Pulse Oximetry 96 95 96 02/07/20 02:00 02/07/20 02:59 02/07/20 05:56 Temperature 99.2 F 98 F 97.2 F L Pulse Rate 96 H 87 89 Respiratory Rate 18 14 18 Blood Pressure 172/89 H 132/60 162/79 H Pulse Oximetry 95 96 97 02/07/20 08:00 Temperature 98.0 F Pulse Rate 81 Respiratory Rate 17 Blood Pressure 144/87 H Pulse Oximetry 93 Oxygen Delivery Method Room Air Oxygen Flow Rate 0 Narrative Exam Narrative: GENERAL APPEARANCE: well developed, obese with a BMI of 39.4, lying semi recumbent in bed alert and responsive no acute distress. HEENT: Normocephalic, PERRLA, conjunctiva clear, EOMs intact without nystagmus, no sinus tenderness to percussion, no rhinorrhea, mucous membranes are moist and pink without lesions or exudate. NECK/THYROID: neck supple, no JVD, no carotid bruit, no thyromegaly, trachea midline. LYMPH NODES: no cervical or supraclavicular lymphadenopathy. SKIN: [place], warm and dry, no visible lesions, rashes, ulcerations or petechiae. HEART: regular rate and rhythm, S1-S2, 1/6 systolic murmur left sternal border, no rubs or gallops, brisk capillary refill, no edema LUNGS: clear to auscultation bilaterally, no coarseness crackles or wheezing, no cough present CHEST: Symmetrical movement, no accessory muscle use, good tidal volume no chest pain on AP and lateral compression. ABDOMEN: Soft, no distention, no abdominal tenderness, no guarding or peritoneal signs, no organomegaly, no flank or suprapubic tenderness, active bowel tones. BACK: Normal curvature, nontender to palpation, no CVA tenderness on percussion EXTREMITIES: moves all extremities, strength is 5/5 and symmetrical, no deformities or joint effusions. NEUROLOGIC: AAO x4, no lateralizing neurologic deficits, cranial nerves II-XII grossly intact, sensation intact to light touch, hearing grossly normal to speech. PSYCH: Anxious appearing, cooperative, stable behavior Objective Labs Result Diagrams: 02/06/20 19:21 02/07/20 04:35 Labs: Laboratory Results - last 24 hr 02/06/20 02/06/20 02/06/20 19:21 19:21 19:21 WBC 7.1 RBC 3.89 L Hgb 13.2 Hct 38.0 MCV 97.6 MCH 33.9 MCHC 34.7 RDW 13.9 Plt Count 423 H Neut % (Auto) 71.1 Lymph % (Auto) 17.2 L [place] % (Auto) 7.9 Eos % (Auto) 2.4 Baso % (Auto) 1.4 Neut # (Auto) 5000 Lymph # (Auto) 1200 [place] # (Auto) 600 Eos # (Auto) 200 Baso # (Auto) 100 D-Dimer 215 Sodium 134 L Potassium 3.7 Chloride 96 L Carbon Dioxide 32 BUN 5 L Creatinine 0.59 Estimated GFR > 60.0 BUN/Creatinine Ratio 8.5 Glucose 110 H Calcium 9.8 Magnesium Total Bilirubin 0.4 AST 98 H ALT 80 H Alkaline Phosphatase 73 Total Creatine Kinase 86 CK-MB (CK-2) TNP CK-MB (CK-2) Rel Index TNP Troponin I < 0.012 NT-Pro-B Natriuret Pep 179 H Total Protein 7.9 Albumin 4.5 Globulin 3.4 Albumin/Globulin Ratio 1.3 Triglycerides Cholesterol LDL Cholesterol, Calc HDL Cholesterol Lipase 55 COVID-19 PCR 02/06/20 02/07/20 02/07/20 20:25 01:17 04:35 WBC RBC Hgb Hct MCV MCH MCHC RDW Plt Count Neut % (Auto) Lymph % (Auto) [place] % (Auto) Eos % (Auto) Baso % (Auto) Neut # (Auto) Lymph # (Auto) [place] # (Auto) Eos # (Auto) Baso # (Auto) D-Dimer Sodium 134 L Potassium 3.6 Chloride 98 Carbon Dioxide 34 H BUN 7 Creatinine 0.74 Estimated GFR > 60.0 BUN/Creatinine Ratio 9.5 Glucose 102 H Calcium 9.1 Magnesium 1.4 L Total Bilirubin 0.7 AST 61 H ALT 64 H Alkaline Phosphatase 57 Total Creatine Kinase CK-MB (CK-2) CK-MB (CK-2) Rel Index Troponin I < 0.012 < 0.012 NT-Pro-B Natriuret Pep Total Protein 6.9 Albumin 3.8 Globulin 3.1 Albumin/Globulin Ratio 1.2 Triglycerides 44 Cholesterol 213 H LDL Cholesterol, Calc 111 H HDL Cholesterol 93 H Lipase COVID-19 PCR Negative Assessment & Plan Assessment & Plan narrative: This is a 54-year-old female patient who presents to the ER with an atypical chest pain starting out as point tenderness under the right breast becoming bandlike across her lower chest precipitating a panic attack. 1. Atypical chest pain, acute, present on admission, active -patient's chest pain starting under the right breast self-treated with Estefania- White Bird and Tums without relief that changed to a bands sensation across lower chest. Patient denies associated symptoms of diaphoresis, shortness of breath or nausea. -12 lead EKG finds sinus rhythm at 77 beats per minute with a left bundle branch block (not new) and left axis unchanged from previous EKG. -cardiac enzymes are negative and D-dimer is 215 and proBNP is 179. -patient did have a prior echocardiogram done on 09/02/2018 showed 50% EF with left ventricle with normal size and function -Ordered aspirin enteric coated, 81 mg daily -ordered nitroglycerin 0.4 mg sublingual every 5 minutes x3 as needed for chest pain. -ordered morphine sulfate 2 mg IV as needed for chest pain. 2. GERD, chronic, present on admission, active -Patient endorses frequent use of nonsteroidal anti-inflammatories on a daily basis to manage her arthritis. She takes Nexium 40 mg twice daily to manage gastritis. -the patient distal endorses consuming alcohol 3+ drinks per day. -teaching provided regarding NSAIDs and alcohol in relation to gastric irritation. -order Protonix 40 mg IV twice daily. 3. Hypertension, chronic, stable -patient's blood pressure 145/81 upon arrival to the ER. Blood pressure is 132/60 after arrival on the acute care floor. -will continue patient's home regimen of lisinopril 20 mg daily and hydrochlorothiazide 12.5 mg daily. 4. Arthritis, multiple locations, chronic, stable. -patient uses nonsteroidal anti-inflammatories routinely for pain management. -teaching provided on NSAID used and gastritis. The patient states she has a 2 of topical diclofenac for use. -will continue tramadol 50 mg every 4 hours as needed. VTE prophylaxis: Enoxaparin IV fluid: Saline lock Diet: Heart healthy Code status: Full code. The patient is admitted to the hospital due to the severity of her symptoms the need for further monitoring and evaluation. The patient is admitted as observation with expected length of stay to be less than 2 midnights. COVID-19 COVID-19 status: Negative Result date/Date tested (Pos, Neg/Pending): 02/07/20 Scores GCS Mahi coma scale eye opening: Spontaneous Milo coma scale verbal response: Orientated Milo coma scale motor response: Obey commands Mahi coma scale total score: 15
[2020-02-07] MEDS: ACETAMINOPHEN 325 MG TABLET 650 MG PO ×4 (03:21→22:49)
--- NOTE | 2020-02-07 03:31 | PC.ADMIT ---
[address] [id number] Admission Note: The patient,Maxx Islas,54 y/o, was given written information regarding hospital policies, unit procedures and contact persons. Patient's smoking status: Former smoker. Pt arrived via wheelchair. Self transferred into bed. Pt is A&Ox4 and up independently. Admit/skin check complete. Pt c/o of HUMPHRIES, Tylenol given. Pt notes feeling of esophageal pressure persists. Pt also acknowledges understanding of CIWA protocol. CIWA = 0. Vital Signs - 8 hr 02/06/20 19:35 02/06/20 19:40 02/06/20 19:45 Temperature Pulse Rate 85 77 Respiratory Rate 20 25 H Blood Pressure 124/68 138/88 149/84 H Pulse Oximetry 95 93 96 02/06/20 19:51 02/06/20 19:55 02/06/20 20:00 Temperature Pulse Rate 85 83 Respiratory Rate 23 20 12 Blood Pressure 130/69 120/58 L 138/68 Pulse Oximetry 95 96 95 02/06/20 20:05 02/06/20 20:10 02/06/20 20:15 Temperature Pulse Rate 80 81 79 Respiratory Rate 14 12 17 Blood Pressure 125/66 147/74 H 152/77 H Pulse Oximetry 95 94 96 02/06/20 20:20 02/06/20 20:25 02/06/20 20:30 Temperature Pulse Rate 81 77 78 Respiratory Rate 18 13 Blood Pressure 162/85 H 161/79 H 166/84 H Pulse Oximetry 95 97 95 02/06/20 20:35 02/06/20 20:40 02/06/20 20:45 Temperature Pulse Rate 78 87 86 Respiratory Rate 11 L 24 22 Blood Pressure 152/84 H 151/79 H 165/86 H Pulse Oximetry 95 95 94 02/06/20 20:46 02/06/20 21:00 02/06/20 21:30 Temperature Pulse Rate 99 H Respiratory Rate 24 43 H 22 Blood Pressure 164/84 H Pulse Oximetry 94 96 97 02/06/20 22:00 02/06/20 22:21 02/06/20 22:30 Temperature Pulse Rate 109 H 116 H 94 H Respiratory Rate 43 H 30 H 17 Blood Pressure 162/82 H Pulse Oximetry 97 94 96 02/06/20 23:00 02/06/20 23:30 11/24/20 00:00 Temperature Pulse Rate 89 84 100 H Respiratory Rate 20 11 L Blood Pressure Pulse Oximetry 97 94 93 02/07/20 00:33 02/07/20 01:00 02/07/20 01:30 Temperature Pulse Rate 91 H 89 Respiratory Rate 17 12 Blood Pressure Pulse Oximetry 88 L 96 95 02/07/20 01:58 02/07/20 02:59 Temperature 98 F Pulse Rate 87 87 Respiratory Rate 14 14 Blood Pressure 132/60 132/60 Pulse Oximetry 96 96
[2020-02-07 04:58] LABS: Alanine Aminotransferase 64 IU/L (<35); Albumin 3.8 g/dL (3.5-5.0); Albumin Globulin Ratio 1.2 (1.0-2.8); Alkaline Phosphatase 57 U/L (38-126); Aspartate Aminotransferase 61 IU/L (14-36); BUN Creatinine Ratio 9.5 (6-22); Bilirubin Total 0.7 mg/dL (0.2-1.3); Blood Urea Nitrogen 7 mg/dL (7-17); Calcium 9.1 mg/dL (8.4-10.2); Carbon Dioxide 34 mmol/L (22-32); Chloride 98 mmol/L (98-107); Cholesterol 213 mg/dL (140-199); Estimated Glomerular Filt Rate > 60.0 mL/min (>60); Globulin 3.1 g/dL (1.7-4.1); Glucose 102 mg/dL (70-100); HDL Cholesterol 93 mg/dL (40-60); HEMOLYSIS < 15 (0-50); LDL Cholesterol Calculated 111 mg/dL (<100); Magnesium 1.4 mg/dL (1.6-2.3); Potassium 3.6 mmol/L (3.4-5.1); Sodium 134 mmol/L (137-145); Total Protein 6.9 g/dL (6.3-8.2); Triglycerides 44 mg/dL (35-150)
[2020-02-07 05:09] LABS: Troponin I < 0.012 ng/mL (0.01-0.034)
[2020-02-07] MEDS: CALCIUM CARBONATE 500 MG TAB 1000 MG PO ×3 (07:55→18:55)
[2020-02-07] MEDS: MAG HYDROX/ALUM/SIMETH 30 ML UDC PO ×2 (07:55→13:54)
[2020-02-07] MEDS: FAMOTIDINE 20 MG TABLET PO ×2 (07:55→20:03)
[2020-02-07] MEDS: ONDANSETRON 4 MG/2 ML INJ IV (08:47)
[2020-02-07] MEDS: PANTOPRAZOLE 40 MG VIAL 20 MG IV ×2 (09:32→20:03)
[2020-02-07] MEDS: TRAMADOL 50 MG TABLET PO (11:10)
[2020-02-07] MEDS: lisinopriL 20 MG TABLET PO (11:11)
[2020-02-07] MEDS: ASPIRIN EC 81 MG TABLET PO (11:12)
[2020-02-07] MEDS: VERAPAMIL 80 MG TABLET 40 MG PO (11:12)
[2020-02-07] MEDS: INFLUENZA VACCINE 0.5 ML SYRINGE IM (11:13)
--- NOTE | 2020-02-07 15:36 | CM.DPNOTE ---
DCP/Assessment: Reviewed chart. Patient is a 54yr old female admitted to [facility] with chest pain. PCP is Clemencia Gaffney. Primary payor is 1)[employer]. Met with patient this AM explained CM/SW role. Patient reports that she is completely I in all ADL's and she does not anticipate any d/c needs. Patient reports that she is retired. No d/c planning needs identified. P: Home when stable. JESSICA Desai Discharge Planning/Care Management CM Discharge Assessment Start: 02/07/20 15:34 Freq: Status: Active Protocol: Document 02/07/20 15:34 KJS (Rec: 02/07/20 15:36 KJS [id number]) Discharge Planning Assessment Assigned Watch Engineer JESSICA Desai Contact Information Daija Venegas (family) Advance Directives? Yes History Provided By Patient,Medical Record Prior Living Arrangements House Household Members friend(s),none Type of transporation used prior to Drives own vehicle admit Independent with ADL's Yes Is patient alert and oriented? Yes Caregiver for Another No Barriers to Discharge No Transportation Arrangement Family or Friend to provide transport. Whiteboard Updated in Patient Room with Yes name and ext. # of Watch Engineer Review Status In Process Next Review Type Continued Stay Review
--- NOTE | 2020-02-07 16:34 | DIET.PN ---
Dietary Progress Note Assessment: 54 yr F admitted for observation c chest pressure. pMHx of celiac disease, HTN, HLD, GERD, and anxiety. Referred to RD for obese BMI. Pt experiencing a lot of nausea and heartburn today. Pt reports that she has had GERD since she was 21yo. Pt says Nexium morning and night is the only medication that really helps. Sometimes she also has to take 4-5 tums as well. Pt reports dx of celiac disease 12 years ago after she was hospitalized. Pt does not report any challenges avoiding gluten. Pt reports that she would like to lose 45-50#. Pt says if she gets over 200# she starts to have pain in her leg. Pt reports that 17yrs ago she followed an Atkins/[employer] style diet with mostly meats and vegetables and lost 50#. Currently pt is trying to cut back on grains and limiting carbohydrates because she feels that play a role in her weight gain. Usual day: Breakfast: Oatmeal or Egg white, spinach and feta Lunch: chicken tenders or a beef earl Dinner: Typically gluten free chicken tenders Pt reports drinking 3-4 glasses of vodka and soda water at night. Pt is sedentary and does not work. Pt would like to start exercising somehow. Pt reports that walking is challenging because of her osteoarthritis and she has trouble finding walking shoes that fit her wide, small feet. Pt previously enjoyed water aerobics and would like to start that again. HT: 149.86cm WT: 88.451kg BMI: 39.4 Labs: ALT: 98H on admit, 61H today; ALT: 80H on admit, 64H today; BUN: 5L TC: 213H LDL: 111H Kwan: 23 Nutrition Diagnosis: Obesity class II r/t food and nutrition related knowledge deficit AEB pt reliance on pre-made foods, sedentary lifestyle, over consumption of alcohol (3-4 shots of vodka/d), elevated LDL cholesterol of 111. Unmanaged GERD symptoms r/t food and nutrition related knowledge deficit aeb pt unaware of what foods aggravate her GERD, pt drinking 3-4 alcoholic drinks/d and sedentary lifestyle. Interventions: 1.Discussed incorporating physical activity into routine. Pt would like to start water aerobics again because she really enjoyed that. 2.Educated pt on foods that can aggravate her GERD. Reinforced with GERD nutrition therapy handout. Pt plans to start keeping a food log again to keep track of what foods have an impact. 3.Educated pt on alcohols recommendations for women and impact of high alcohol consumption on acid reflux and arthritis. Recc. reducing alcohol closer to the 1 drink/d. recommendation. Diet Order: Heart healthy EER: 1240kcal (14kcal/kg BW, obesity)
[2020-02-07] MEDS: dilTIAZem 30 MG TABLET 60 MG PO (18:50)
[2020-02-07] MEDS: MAGNESIUM OXIDE 400 MG TABLET PO (20:03)
[2020-02-08 00:05] VITALS: BP 176/84; PULSE 88; RESP 20; TEMP 36.3; O2SAT 95
[2020-02-08 00:18] VITALS: BP 176/84; PULSE 88
[2020-02-08] MEDS: dilTIAZem 30 MG TABLET 60 MG PO ×3 (00:18→12:39)
[2020-02-08] MEDS: TRAMADOL 50 MG TABLET PO (02:56)
[2020-02-08 06:08] VITALS: BP 164/83; PULSE 73
[2020-02-08] MEDS: FAMOTIDINE 20 MG TABLET PO (06:08)
[2020-02-08] MEDS: CALCIUM CARBONATE 500 MG TAB 1000 MG PO ×2 (06:08→13:04)
[2020-02-08] MEDS: MAG HYDROX/ALUM/SIMETH 30 ML UDC PO (06:08)
[2020-02-08 06:25] VITALS: BP 164/83; PULSE 73; RESP 18; TEMP 36.3; O2SAT 96
--- NOTE | 2020-02-08 06:43 | PC.NURSE ---
[employer] Technical Lead Note-Patient denies chest pain or nausea, has mild intermittent heartburn, scheduled PO diltiazem given for esophageal spasms, patient says it works Pepcid PO, Maalox, and Tums also given. Tramadol given for headache-effective. SR, BBB, remains hypertensive, see vital trends, CIWA =1.
[2020-02-08 08:30] VITALS: BP 130/60; PULSE 96; RESP 19; TEMP 36.9; O2SAT 97
[2020-02-08] MEDS: lisinopriL 20 MG TABLET PO (09:24)
[2020-02-08] MEDS: ASPIRIN EC 81 MG TABLET PO (09:24)
[2020-02-08] MEDS: MAGNESIUM OXIDE 400 MG TABLET PO (09:24)
--- NOTE | 2020-02-08 09:47 | PM.DS.1 ---
History of Present Illness History of Present Illness Date Patient Seen: 02/08/20 Chief complaint: Chest Pain Narrative: Ms. Maxx Islas is a 54-year-old female with a past medical history significant for hypertension, palpitations, GERD, anxiety and depression, headaches and celiac disease who presents to the ER for chest pain. the patient reports an onset of point tenderness under the right medial breast at approximately 4:00 p.m.. The patient thought this was related to her GERD and took Estef[place] without relief and took another dose of Estef[place]. She still had no relief so took Tums. She subsequently developed a bandlike sensation across her lower chest which precipitated a panic attack. She presently describes her discomfort as a tightness like an esophageal spasm. The patient has had previous episodes of chest pressure. The patient denies complaints of dizziness, shortness of breath, palpitations, nausea or diaphoresis. She does endorse taking frequent doses of nonsteroidal anti-inflammatories for her arthritis and treats her gastric irritation with Nexium 40 mg twice daily. She has no other complaints a recent illness and no fevers or chills. Denies nasal congestion or sore throat. She has chest pain as above but denies palpitations with a history of arrhythmias treated with verapamil. She denies shortness of breath cough or wheezing and has no abdominal pain, changes in bowel or bladder habits. Upon arrival the ER the patient is afebrile with a temperature 98.0?, heart rate of 86, blood pressure 145/81, respirations 16 saturating 99% on room air. A chest x-ray is obtained which is found to be normal for patient age, 12 lead EKG is obtained finding a sinus rhythm at a rate of 77 with a left bundle branch block and left axis unchanged from prior tracing. On laboratory analysis he has white count of 7.1, hemoglobin of 13.2, hematocrit of 35.0 and platelets of 423. There is no shift. Electrolytes are all within normal limits she has a BUN of 5 and a creatinine of 0.59. Her nonfasting glucose is 110. He has a bilirubin of 0.4, AST of 98, ALT of 80 and alkaline phosphatase of 73. Her lipase is 55. She has a D-dimer of 215. Her troponin is less than 0.012 and her proBNP is 179. The patient received 1 nitroglycerin EN route to the ER via EMS and received 2 more in the emergency department is now complaining of significant headache. She also received a GI cocktail, Protonix 40 mg, Zofran 4 mg and Ativan IV. The patient's symptoms have all but abated. Patient is admitted to the hospital for chest pain. Discharge Providers Provider Date of admission: 02/07/20 00:55 Discharge Date: 02/08/20 Primary care physician: Clemencia Gaffney DO Consults: 02/07/20 03:03 Consult to Dietitian, Adult Routine Comment: Reason For Exam: obese BMI 39.4 Consult to Discharge Planning Routine Comment: Discharge provider: Gin Mendieta MD Summary Hospital Course Discharge Diagnosis: 1. Chest Pain-Suspect Non Cardiac 2. Probable Eshophageal Spasm 3. GERD 4. Hypertension 5. Panic Disorder Hospital Course: The patient was admitted to the hospital for chest pain. She describes midepigastric is a subxiphoid sensation. She had some associated nausea with it. She also complained significant reflux. She was placed on a proton pump inhibitor and given a GI cocktail with minimal relief. The patient was given a dose of Cardizem CD 60 which seemed to improve her symptoms significantly. Her cardiac enzymes are negative. Her EKG was unremarkable. Patient was deemed appropriate for discharge and arrangements were made for her to discharge home. She is car the pain Status at Discharge Cognitive/behavioral status at discharge: oriented Functional status at discharge: independent ambulation Overall status at discharge: patient is back to baseline Time Spent with Patient Time spent: Less than 30 minutes Exam Vital Signs (past 8 hours): - 02/08/20 06:08 02/08/20 06:25 02/08/20 08:30 Temperature 97.3 F L 98.5 F Pulse Rate 73 73 96 H Respiratory Rate 18 19 Blood Pressure 164/83 H 164/83 H 130/60 Pulse Oximetry 96 97 Oxygen Delivery Method Room Air Oxygen Flow Rate 0 Narrative Exam Narrative: Pleasant female in no acute distress Lungs: Clear to auscultation Cardiac exam: Regular rate and rhythm normal S1-S2 Abdomen: Soft nontender nondistended Objective Labs Result Diagrams: 02/06/20 19:21 02/07/20 04:35 Labs: Laboratory Results - last 24 hr 02/07/20 18:06 Nasal Screen MRSA (PCR) Negative for mrsa [facility] Medical History (Updated 02/07/20 @ 09:04 by SANDRA Sanchez) Anxiety Arthritis Celiac disease Depression Frequent headaches GE reflux History of colon polyps Hypertension Palpitations Surgical History (Updated 02/07/20 @ 09:04 by SANDRA Sanchez) History of colonoscopy History of esophagogastroduodenoscopy (EGD) History of surgery on wrist Hx of LASIK Family History (Updated 02/07/20 @ 09:05 by SANDRA Sanchez) Father Cancer Mother Cancer Grandfather Cardiovascular disease Social History household members: friend(s) and none Smoking Status: Former smoker alcohol intake: current Discharge Assessment & Plan Assessment and Plan Assessment: 1. Chest pain, suspect noncardiac 2. GERD 3. Hypertension 4. Panic disorder Plan of Treatment: Patient will continue her usual home medication Will add Cardizem 60 p.o. q.6 as needed for epigastric discomfort She will follow-up with her PCP in 1-2 weeks for further evaluation Discharge Plan Discharge Plan Patient Disposition: Home Discharge orders & Medications Prescriptions: New diltiazem HCl 30 mg Tablet 60 mg PO Q6HR Qty: 30 RF: 0 Continued lisinopril 20 MG tablet 20 mg PO QDAY Qty: 0 RF: 0 tramadol 50 MG tablet 50 mg PO PRN Qty: 0 RF: 0 ESOMEPRAZOLE SODIUM (NEXIUM) 20 mg PO BID Qty: 0 RF: 0 LACTOBACILLUS ACIDOPHILUS (#ACIDOPHILUS) 1 cap/day PO DAILY Qty: 0 RF: 0 verapamil 40 mg Tablet 40 mg PO DAILY RF: 0 cetirizine 10 mg 5 mg PO Q OTHER DAY RF: 0 hydrochlorothiazide 12.5 mg tablet 12.5 mg PO DAILY RF: 0 Follow up/Referrals: Clemencia Gaffney DO [Primary Care Provider] - Discharge Health Status Multidrug resistant organism: No MDRO Diet/Activity/Treatments Diet: Low-sodium and Low-cholesterol Discharge Data Primary Care Provider: Clemencia Gaffney Attending Provider: Rafael Duran
--- NOTE | 2020-02-08 11:24 | PC.NURSE ---
Addendum entered by Andrey Giang R.N. 02/08/20 13:16: Pt transferred from bed to w/c independently and was escorted to private vehicle with all belongings in no distress. Original Note: Reviewed d/c packet and d/c education regarding dx, medications, f/u appt, medication scheduling, when to seek emergency medical tx. Pt verbalizes understanding and has no additional questions at this time. Removed PIV with cath tip intact. Pt dressed self. She has been independent with ADLs in room. Gait is steady. VSS. Awaiting transportation home she estimates a dc time 12-1300.
== END 2020-02-08 13:15 | disposition home or self-care (01) ==
LOC: ED 19:44 → AC 02-07 00:56 → ICU 02-07 01:34
PROVIDERS: Admitting Provider Nurse Practitioner Adult Health; Emergency Provider Emergency Medicine; PCP Family Medicine; Visit Provider Nurse Practitioner Adult Health
DX: R07.9 Chest pain, unspecified (principal); I10 Essential (primary) hypertension; K21.9 Gastro-esophageal reflux disease without esophagitis; F41.9 Anxiety disorder, unspecified; F32.9 Major depressive disorder, single episode, unspecified; R51.9 Headache, unspecified; K90.0 Celiac disease; M19.91 Primary osteoarthritis, unspecified site; F41.0 Panic disorder [episodic paroxysmal anxiety]; Z11.59 Encounter for screening for other viral diseases
CPT/HCPCS: 36415; 71045; 80053; 80061; 82550; 83690; 83735; 83880; 84484; 85025; 85379; 87635; 87797; 90471; 90656; 93005; 93010; 96361; 96374; 96375; 96376; 99283; 99284; G0378; STOP; A9270; C9113; J1650; J2060; J2405; Q2038

== ENCOUNTER → 2021-10-21 14:34 | Outpatient (CLI) | payer OTHER, SELFPAY ==
[2020-02-07 01:33] VITALS: BMI 39.4
--- NOTE | 2021-10-21 14:36 | DI.ECHO.S_ITS ---
[facility] +---------+ : : [address] : : : : [id number] : : : : Phone: [phone]---------+ Echocardiogram Report + + :Name: NIKOLAI MOONEY Study Date: 10/21/2021 Height: 58 in : :[facility] ReadingLocation: Weight: 173 lb : : Gender: Female BSA: 1.7 m2 : :: 1965 Age: 56 yrs BP: 114/71 mmHg: :Reason For Study: SOB : :Ordering Physician: MARIO, : :RONNIE Performed By: Akil Saleh : :Referring: RONNIE JOSHI : + + Interpretation Summary The left ventricle is normal in size and wall thickness. Left ventricular systolic function is mildly reduced. Left ventricular ejection fraction is estimated to be 45%. LVEF has not changed. There is septal wall hypokinesis. There is a significant dyssynchronous contraction pattern, consistent with a conduction abnormality. Diastolic parameters suggest a relaxation abnormality of the left ventricle, consistent with probable normal filling pressures. The right ventricle is normal in size and function. The right ventricular systolic pressure is estimated to be at least 25 mmHg based on an estimated right atrial pressure of 3 mm Hg. Both atria are normal in size. There is no significant valvular heart disease. The aortic root is normal size. Procedure: A two-dimensional transthoracic echocardiogram with color flow and Doppler was performed. The study quality was technically adequate. Comparison is made with the echocardiogram of 09/02/2018. Left Ventricle: The left ventricle is normal in size and wall thickness. Left ventricular systolic function is mildly reduced. Left ventricular ejection fraction is estimated to be 45%. There is septal wall hypokinesis. There is a significant dyssynchronous contraction pattern, consistent with a conduction abnormality. Diastolic parameters suggest a relaxation abnormality of the left ventricle, consistent with probable normal filling pressures. Right Ventricle: The right ventricle is normal in size and function. Atria: Both atria are normal in size. The interatrial septum grossly appears intact with no obvious evidence for an atrial septal defect. Mitral Valve: The mitral valve is normal in structure and function. There is trace mitral regurgitation. Aortic Valve: The aortic valve is normal in structure and function. No aortic regurgitation is present. Tricuspid Valve: The tricuspid valve is normal in structure and function. There is trace tricuspid regurgitation. The right ventricular systolic pressure is estimated to be at least 25 mmHg based on an estimated right atrial pressure of 3 mm Hg. Pulmonic Valve: The pulmonic valve is normal in structure and function. There is trace pulmonic regurgitation. There is no significant valvular heart disease. Great Vessels: The aortic root is normal size. The dimensions of the ascending aorta are normal. The IVC is of normal diameter and collapses greater than 50% with a sniff. This suggests a low right atrial pressure of 3 mm Hg. Pericardium/ Pleura There is no pericardial effusion. There is no pleural effusion. MMode/2D Measurements & Calculations LVIDd: 5.2 cm LVOT diam: 2.0 cm LVIDs: 4.1 cm Ao root diam: 2.6 cm FS: 20.3 % asc Aorta Diam: 3.0 cm IVSd: 0.97 cm LVPWd: 0.75 cm LV mauro. diameter/BSA (cm/m^2): 3.0 LV sys. diameter/BSA (cm/m^2): 2.4 LA A2 area: 14.9 cm2 RA long axis: 4.2 cm LA A4 area: 16.4 cm2 RA area: 12.6 cm2 LA length (vol): 5.4 cm RA vol: 32.1 ml LA vol: 38.8 ml RA : 18.7 ml/m2 LA vol index: 22.7 ml/m2 TAPSE: 2.0 cm Doppler Measurements & Calculations Ao V2 max: 156.4 cm/sec LVOT Max Fabio: 106.0 cm/sec Ao V2 mean: 104.9 cm/sec LV V1 max P.5 mmHg Ao max P.8 mmHg LV V1 VTI: 20.2 cm Ao mean P.0 mmHg TORIE(I,D): 2.4 cm2 Ao V2 VTI: 26.9 cm TORIE(V,D): 2.1 cm2 sev ratio: 0.75 TORIE indexed to BSA (cm^2/m^2): 1.4 MV E max fabio: 65.7 cm/sec TR max fabio: 232.2 cm/sec MV A max fabio: 75.1 cm/sec TR max P.6 mmHg MV E/A: 0.87 Med Peak E' Fabio: 5.9 cm/sec E/E' med: 11.2 Lat Peak E' Fabio: 10.0 cm/sec E/E' lat: 6.6 E/e' average: 8.9 MV dec time: 0.20 sec SV(LVOT): 63.3 ml Reading Physician:05:24 PM
== END ==
PROVIDERS: Referring Provider Internal Medicine Cardiovascular Disease; Visit Provider Internal Medicine Cardiovascular Disease
DX: R06.02 Shortness of breath (principal)
CPT/HCPCS: 93306

== ENCOUNTER 2023-03-08 10:58 | Emergency (ER) | payer OTHER, SELFPAY ==
[2020-02-07 01:33] VITALS: BMI 39.4
[2023-03-08] VITALS (33 sets, daily range): BP systolic 141–174; BP diastolic 70–90; PULSE 93–130; RESP 18–38; TEMP 38.3–38.4; O2SAT 93–97; BMI 36.6
--- NOTE | 2023-03-08 11:13 | DI.RAD.S_ITS ---
PROCEDURE: XR CHEST 1V INDICATIONS: suspected sepsis TECHNIQUE: One view of the chest was acquired. COMPARISON: [facility], JAMIE, XR CHEST 1V, 02/06/2020, 19:09. [facility], JAMIE, CHEST 1 VIEW, 06/25/2016, 17:15. FINDINGS: Surgical changes and devices: None. Lungs and pleura: Low lung volumes. No dense consolidation or pleural effusion. Mediastinum: Heart size is borderline enlarged. Bones and chest wall: Degenerative changes. IMPRESSION: No acute abnormality on this single view radiograph. Borderline heart size. Dictated by: Neil Frederick M.D. on 03/08/2023 at 11:50 Approved by: Neil Frederick M.D. on 03/08/2023 at 11:51
[2023-03-08 11:36] LABS: Add Manual Diff / Slide Review NO; Basophils Absolute Auto 100 /uL (0-100); Basophils Percent Auto 1.3 % (0-2); Eosinophils Absolute Auto 200 /uL (0-450); Eosinophils Percent Auto 3.8 % (2-4); Hematocrit 34.3 % (36-46); Hemoglobin 11.9 g/dL (12.0-16.0); Lymphocytes Absolute Auto 500 /uL (1100-4500); Lymphocytes Percent Auto 9.8 % (25-40); Mean Corpuscular HGB Conc 34.7 % (30-36); Mean Corpuscular Hemoglobin 34.1 PG (26-34); Mean Corpuscular Volume 98.3 fL (80-100); Monocytes Absolute Auto 700 /uL (0-900); Monocytes Percent Auto 14.8 % (3-14); Neutrophils Absolute Auto 3500 /uL (1500-7000); Neutrophils Percent Auto 70.3 % (50-75); Platelet Count 345 X10^3/uL (150-400); Red Blood Cell Count 3.49 X10^6/uL (4.0-5.2); Red Cell Distribution Width 13.3 % (11.6-14.8)
[2023-03-08] MEDS: SODIUM CHLORIDE 0.9% 1,000 ML 1000 ML IV (11:37)
[2023-03-08 11:39] LABS: INR 1.1 (0.9-1.3); Prothrombin Time 12.2 SECONDS (9.4-12.5)
[2023-03-08 11:42] LABS: PTT Partial Thromboplastin Tim 29 SECONDS (25.1-36.5)
[2023-03-08 11:43] LABS: Alanine Aminotransferase 30 IU/L (<35); Albumin 4.5 g/dL (3.5-5.0); Albumin Globulin Ratio 1.3 (1.0-2.8); Alkaline Phosphatase 54 U/L (38-126); Aspartate Aminotransferase 54 IU/L (14-36); BUN Creatinine Ratio 11.3 (6-22); Bilirubin Total 0.5 mg/dL (0.2-1.3); Blood Urea Nitrogen 7 mg/dL (7-17); Calcium 8.5 mg/dL (8.4-10.2); Carbon Dioxide 26 mmol/L (22-32); Chloride 95 mmol/L (98-107); Estimated Glomerular Filt Rate > 60 mL/min (>60); Globulin 3.4 g/dL (1.7-4.1); Glucose 94 mg/dL (70-100); HEMOLYSIS < 15 (0-50); Lactate (Lactic Acid) 2.2 mmol/L (0.7-2.1); Lipase 66 U/L (23-300); Potassium 3.7 mmol/L (3.4-5.1); Sodium 133 mmol/L (137-145); Total Protein 7.9 g/dL (6.3-8.2)
[2023-03-08 12:00] LABS: Procalcitonin 0.08 ng/mL (<0.5)
[2023-03-08 12:21] LABS: Influenza A - CEPHEID Flu A NEGATIVE (NEGATIVE); Influenza B - CEPHEID Flu B NEGATIVE (NEGATIVE); Respiratory Syncytial Virus Negative (Negative)
[2023-03-08 12:25] LABS: COVID-19 CEPHEID 4-PLEX PCR POSITIVE (Negative)
[2023-03-08] MEDS: ACETAMINOPHEN 325 MG TABLET 975 MG PO (12:56)
[2023-03-08 13:11] LABS: Reflexed Lactate in 2 Hours Y
--- NOTE | 2023-03-08 13:26 | ED_ITS ---
HPI - URI/Sore Throat General Chief Complaint: Upper Respiratory Symptoms Stated Complaint: thinks bronchitis Time Seen by Provider: 03/08/23 13:25 Source: patient Mode of arrival: Ambulatory History of Present Illness HPI Narrative: 57-year-old female with history of hypertension, dyslipidemia, celiac disease and gastroparesis and GERD who presents with complaint of possible bronchitis. Patient states about 15 years ago she would very similar symptoms had albuterol which was very helpful. States she is had a cough for a couple weeks ever since she turned her heat on but noticed in the last 24 hour fevers, congestion, headache and tightness in her chest. Patient states no chest pain or pressure. She feels tight or wheezy. She states no shortness of breath. She has had subjective fevers at home in his febrile here. She denies fevers or chills. Has had cough but not productive. She is had diarrhea for the last several days but states she is had on and off with her celiac history. No black or bloody stools. No dysuria urgency or frequency. No swelling of extremities. She does not take any anticoagulants. Denies any recent surgeries. Quit smoking in 2013. Does drink alcohol, no recreational drugs. Follows with primary care of the [employer] [facility]. She does follow up with Cardiology once yearly states she is on medications for palpitations but has not had any other diagnosed cardiac issues or arrhythmias. Related Data Home Medications Medication Instructions Recorded Confirmed lisinopril 20 mg tablet 20 mg PO QDAY ##0 11/12/10 02/07/20 ESOMEPRAZOLE SODIUM (NEXIUM) 20 mg PO BID ##0 04/15/11 02/07/20 LACTOBACILLUS ACIDOPHILUS 1 cap/day PO DAILY ##0 04/15/11 02/07/20 (#ACIDOPHILUS) tramadol 50 mg tablet 50 mg PO PRN ##0 04/15/11 02/07/20 verapamil 40 mg tablet 40 mg PO DAILY 10/06/18 02/07/20 cetirizine 5 mg PO Q OTHER DAY allergies 02/07/20 02/07/20 hydrochlorothiazide 12.5 mg tablet 12.5 mg PO DAILY 02/08/20 02/08/20 Previous Rx's Medication Instructions Recorded diltiazem HCl 30 mg tablet 60 mg (2 x 30 mg) PO Q6HR #30 tabs 02/08/20 Allergies Allergy/AdvReac Type Severity Reaction Status Date / Time gluten [GLUTEN] Allergy Unknown Verified 10/06/18 13:54 Review of Systems Review of Systems ROS Unobtainable: All systems reviewed & are unremarkable except as noted in HPI and below Patient History Medical History Palpitations Frequent headaches Hypertension History of colon polyps Celiac disease Arthritis Depression Anxiety GE reflux Surgical History Hx of LASIK History of surgery on wrist History of colonoscopy History of esophagogastroduodenoscopy (EGD) Family History Father Cancer Mother Cancer Grandfather Cardiovascular disease Social History household members: friend(s) and none Smoking Status: Former smoker alcohol intake: current Smoking Status: Former smoker alcohol intake frequency: 3 or more drinks per day Substance Use Type: does not use Exam Narrative Exam Narrative: GEN: well nourished, well appearing female, alert and oriented x 3, patient appears to be in mild distress. HEENT: Atraumatic, pupils are equal round reactive to light, extraocular movements are intact, positive for nasal congestion, there is no conjunctival pallor. Throat is clear without any exudates, erythema, tonsillar enlargement or uvular deviation HEART: Slightly tachycardic regular rhythm without murmur, clicks, rubs. No edema bilateral lower extremities. LUNGS:Lungs clear to auscultation, no wheezes, rales, crackles, chest moves symmetrically, no tachypnea or accessory muscle use ABD:bowel sounds normal, soft, non-tender, no guarding, rebound, rigidity, no masses noted, no hepatosplenomegaly MSCL: Non-tender, no muscle atrophy, muscles strength 5/5 upper and lower extremities, full range of motion NEURO:CN 2-12 intact, sensation normal Initial Vital Signs Initial Vital Signs: Vital Signs Pulse Rate 130 H 03/08/23 11:03 Pulse Oximetry 93 03/08/23 11:03 Course Orders Ordered: ED Orders 03/08/23 11:13 XR chest 1V Stat RT Consult Eval and Treat NOW 03/08/23 11:15 Covid-19 + FLU A/B + RSV - PCR Stat 03/08/23 11:24 Blood Culture Stat Complete Blood Count AUTO DIFF Stat Comprehensive Metabolic Panel Stat Lactate (Lactic Acid) Stat Lipase Stat PTT Partial Thromboplastin Kishan Stat Procalcitonin Stat Prothrombin Time INR Stat 03/08/23 12:10 EKG-12 Lead Stat Discontinued Medications Acetaminophen (Acetaminophen 325 Mg Tablet) 975 mg PO NOW ONE Stop: 03/08/23 12:54 Last Admin: 03/08/23 12:56 Dose: 975 mg Documented By: JIMENEZ Albuterol (Albuterol Hfa Prepack) 1 box MISC DIRECTED ONE Stop: 03/08/23 13:41 Last Admin: 03/08/23 13:50 Dose: 1 box Documented By: FRANCISCO JAVIER Sodium Chloride (Normal Saline 0.9%) 1,000 mls @ 1,000 mls/hr IV BOLUS ONE Stop: 03/08/23 12:12 Last Infusion: 03/08/23 12:45 Dose: Infused Documented By: Admin: 03/08/23 11:37 Dose: 1,000 mls/hr Documented By: JIMENEZ Ondansetron HCl (Ondansetron 4 Mg/2 Ml Inj) 4 mg IV NOW PRN PRN Reason: Nausea And Vomiting Ondansetron HCl (Ondansetron 4 Mg Odt) 4 mg SL NOW PRN PRN Reason: Nausea And Vomiting Vital Signs Vital signs: Vital Signs - 8 hr 03/08/23 11:03 03/08/23 11:04 03/08/23 11:04 Temperature Pulse Rate 130 H 130 H Respiratory Rate Blood Pressure 162/90 H Pulse Oximetry 93 96 Oxygen Delivery Method 03/08/23 11:07 03/08/23 11:15 03/08/23 11:30 Temperature 101 F H Pulse Rate 122 H 111 H 108 H Respiratory Rate 26 H 23 24 Blood Pressure 162/90 H Pulse Oximetry 97 95 95 Oxygen Delivery Method Room Air 03/08/23 11:30 03/08/23 11:36 03/08/23 11:36 Temperature Pulse Rate 103 H Respiratory Rate 18 Blood Pressure 152/82 H 152/84 H Pulse Oximetry 97 Oxygen Delivery Method 03/08/23 11:40 03/08/23 11:40 03/08/23 11:45 Temperature Pulse Rate 105 H 104 H Respiratory Rate 30 H 19 Blood Pressure 152/79 H Pulse Oximetry 97 94 Oxygen Delivery Method 03/08/23 11:45 03/08/23 11:50 03/08/23 11:50 Temperature Pulse Rate 100 H Respiratory Rate 21 Blood Pressure 143/79 H 146/81 H Pulse Oximetry 96 Oxygen Delivery Method 03/08/23 12:00 03/08/23 12:01 03/08/23 12:01 Temperature Pulse Rate 120 H 115 H Respiratory Rate 38 H Blood Pressure 168/89 H Pulse Oximetry 94 96 Oxygen Delivery Method 03/08/23 12:05 03/08/23 12:05 03/08/23 12:10 Temperature Pulse Rate 100 H 100 H Respiratory Rate 22 23 Blood Pressure 166/83 H Pulse Oximetry 95 97 Oxygen Delivery Method 03/08/23 12:10 03/08/23 12:15 03/08/23 12:15 Temperature Pulse Rate 100 H Respiratory Rate 26 H Blood Pressure 158/75 H 156/78 H Pulse Oximetry 97 Oxygen Delivery Method 03/08/23 12:20 03/08/23 12:20 03/08/23 12:25 Temperature Pulse Rate 96 H 97 H Respiratory Rate 25 H 25 H Blood Pressure 153/71 H Pulse Oximetry 97 95 Oxygen Delivery Method 03/08/23 12:25 03/08/23 12:30 03/08/23 12:30 Temperature Pulse Rate 99 H Respiratory Rate 19 Blood Pressure 149/70 H 157/77 H Pulse Oximetry 95 Oxygen Delivery Method 03/08/23 12:35 03/08/23 12:35 03/08/23 12:40 Temperature Pulse Rate 102 H 99 H Respiratory Rate 18 19 Blood Pressure 153/79 H Pulse Oximetry 95 95 Oxygen Delivery Method 03/08/23 12:40 03/08/23 12:45 03/08/23 12:45 Temperature Pulse Rate 101 H Respiratory Rate 20 Blood Pressure 156/80 H 163/84 H Pulse Oximetry 95 Oxygen Delivery Method 03/08/23 12:50 03/08/23 12:50 03/08/23 12:55 Temperature Pulse Rate 99 H 98 H Respiratory Rate 21 20 Blood Pressure 172/81 H Pulse Oximetry 94 94 Oxygen Delivery Method 03/08/23 12:55 03/08/23 12:56 03/08/23 13:00 Temperature 101.2 F H Pulse Rate 97 H Respiratory Rate 21 Blood Pressure 174/81 H Pulse Oximetry 96 Oxygen Delivery Method 03/08/23 13:00 03/08/23 13:05 03/08/23 13:05 Temperature Pulse Rate 97 H Respiratory Rate 22 Blood Pressure 157/75 H 158/77 H Pulse Oximetry 94 Oxygen Delivery Method 03/08/23 13:10 03/08/23 13:10 03/08/23 13:15 Temperature Pulse Rate 96 H 93 H Respiratory Rate 26 H 27 H Blood Pressure 149/70 H Pulse Oximetry 95 93 Oxygen Delivery Method 03/08/23 13:15 03/08/23 13:20 03/08/23 13:20 Temperature Pulse Rate 95 H Respiratory Rate 26 H Blood Pressure 153/77 H 150/70 H Pulse Oximetry 93 Oxygen Delivery Method 03/08/23 13:25 03/08/23 13:25 03/08/23 13:30 Temperature Pulse Rate 100 H 95 H Respiratory Rate 23 28 H Blood Pressure 150/70 H Pulse Oximetry 94 95 Oxygen Delivery Method 03/08/23 13:30 03/08/23 13:35 03/08/23 13:35 Temperature Pulse Rate 102 H Respiratory Rate 21 Blood Pressure 142/73 H 141/77 H Pulse Oximetry 95 Oxygen Delivery Method 03/08/23 13:40 03/08/23 13:40 03/08/23 13:55 Temperature 100.9 F H 100.9 F H Pulse Rate 102 H Respiratory Rate 28 H Blood Pressure 152/77 H Pulse Oximetry 95 Oxygen Delivery Method MDM - URI/Sore Throat Lab Data 03/08/23 11:24 03/08/23 11:24 Labs: Lab Results 03/08/23 03/08/23 03/08/23 Range/Units 11:15 11:24 13:33 WBC 5.0 (4.5-11.0) X10^3/uL RBC 3.49 L (4.0-5.2) X10^6/uL Hgb 11.9 L (12.0-16.0) g/dL Hct 34.3 L (36-46) % MCV 98.3 (80-100) fL MCH 34.1 H (26-34) PG MCHC 34.7 (30-36) % RDW 13.3 (11.6-14.8) % Plt Count 345 (150-400) X10^3/uL Neut % (Auto) 70.3 (50-75) % Lymph % (Auto) 9.8 L (25-40) % Carson % (Auto) 14.8 H (3-14) % Eos % (Auto) 3.8 (2-4) % Baso % (Auto) 1.3 (0-2) % Neut # (Auto) 3500 (7665-9850) /uL Lymph # (Auto) 500 L (5332-3995) /uL Carson # (Auto) 700 (0-900) /uL Eos # (Auto) 200 (0-450) /uL Baso # (Auto) 100 (0-100) /uL PT 12.2 (9.4-12.5) SECONDS INR 1.1 (0.9-1.3) APTT 29 (25.1-36.5) SECONDS Sodium 133 L (137-145) mmol/L Potassium 3.7 (3.4-5.1) mmol/L Chloride 95 L (98-107) mmol/L Carbon Dioxide 26 (22-32) mmol/L BUN 7 (7-17) mg/dL Creatinine 0.62 (0.52-1.04) mg/dL Estimated GFR > 60 (>60) mL/min BUN/Creatinine Ratio 11.3 (6-22) Glucose 94 (70-100) mg/dL Lactate 2.2 H 2.2 H (0.7-2.1) mmol/L Calcium 8.5 (8.4-10.2) mg/dL Total Bilirubin 0.5 (0.2-1.3) mg/dL AST 54 H (14-36) IU/L ALT 30 (<35) IU/L Alkaline Phosphatase 54 (38-126) U/L Total Protein 7.9 (6.3-8.2) g/dL Albumin 4.5 (3.5-5.0) g/dL Globulin 3.4 (1.7-4.1) g/dL Albumin/Globulin Ratio 1.3 (1.0-2.8) Lipase 66 (23-300) U/L Procalcitonin 0.08 (<0.5) ng/mL SARS-CoV-2 (PCR) Positive H (Negative) Influenza A (RT-PCR) Flu a negative (NEGATIVE) Influenza B (RT-PCR) Flu b negative (NEGATIVE) RSV (PCR) Negative (Negative) Urine Dip Bedside Urine Glucose Negative Bedside Urine Bilirubin - Negative Bedside Urine Ketone - Negative Urine Specific [place] 1.015 Bedside Urine Occult Blood - Negative Bedside Urine pH 6.0 Bedside Urine Protein - Negative Bedside Urine Urobilinogen - Negative Bedside Urine Nitrite - Negative Bedside Urine Leukocytes - Negative Esterase Imaging Data Chest x-ray: Radiologist's Impression: [address] [address] XRay Report Signed Patient: Maxx Islas MR#: [id number] : 1965 Acct:[id number] Age/Sex: 57 / F Date of Service: 03/08/23 Loc: ED Accession Number: [id number] Procedure: XR chest 1V Ordering Provider: Liane Vargas D.O. PROCEDURE: XR CHEST 1V INDICATIONS: suspected sepsis TECHNIQUE: One view of the chest was acquired. COMPARISON: [facility], CR, XR CHEST 1V, 02/06/2020, 19:09. [facility], CR, CHEST 1 VIEW, 06/25/2016, 17:15. FINDINGS: Surgical changes and devices: None. Lungs and pleura: Low lung volumes. No dense consolidation or pleural effusion. Mediastinum: Heart size is borderline enlarged. Bones and chest wall: Degenerative changes. IMPRESSION: No acute abnormality on this single view radiograph. Borderline heart size. Dictated by: Neil Frederick M.D. on 03/08/2023 at 11:50 Approved by: Neil Frederick M.D. on 03/08/2023 at 11:51 ECG Data Attestation: I personally reviewed and interpreted this ECG as follows: Prior ECG tracings: available for review Interpretation: Sinus tach rate of 101 AL 146 QRS of 144 QTC 421, left bundle-branch block. Patient has prior that appears similar. Patient has prior from 02/07/2020 which appears similar. MDM Narrative Medical decision making narrative: 57-year-old female presents with complaint of fever, cough, chest tightness for the past 24 hours with muscle aches and headaches. Patient states she had some exposure a couple days ago at the grocery store. Chest x-ray is clear, CBC is negative, CMP shows no acute change glucose is 94 lactate was 2.2, LFTs, procalcitonin are negative. Coags are negative. Patient is COVID positive. Patient's lungs are clear on examination but she states she feels very tight was given several puffs with albuterol minimal improvement but we will send home as she is had bronchitis remotely and states it feels very similar. Plan for symptomatic treatment with Tylenol/ibuprofen. We discussed return precautions. Discharge Plan Departure Patient Disposition: Home Clinical Impression: COVID-19 virus infection Instructions: DI for COVID-19 (Suspected or Confirmed ) Activity Restrictions/Additional Instructions: You have tested positive for COVID today. Symptoms typically last 7-10 days Take acetaminophen to a 1000 mg every 6 and/or ibuprofen to 600 mg every 6 hours as needed for fevers and muscle aches. Make sure you are drinking plenty of fluids and staying hydrated. You can try albuterol 2-4 puffs every 4 hours as needed. Use spacer. This may help with cough. Please return for new or worsening symptoms, new chest pain, shortness of breath, passing out, persistent vomiting, new swelling in extremities or other new or concerning changes. Prescriptions: No Action lisinopril 20 MG tablet 20 mg PO QDAY Qty: 0 tramadol 50 MG tablet 50 mg PO PRN Qty: 0 ESOMEPRAZOLE SODIUM (NEXIUM) 20 mg PO BID Qty: 0 LACTOBACILLUS ACIDOPHILUS (#ACIDOPHILUS) 1 cap/day PO DAILY Qty: 0 verapamil 40 mg Tablet 40 mg PO DAILY cetirizine 10 mg 5 mg PO Q OTHER DAY Patient Comments: I cut it in half and take it every other day per my Doctor, I have been getting allergy shots for 2 years and will be able to stop taking it soon. hydrochlorothiazide 12.5 mg tablet 12.5 mg PO DAILY diltiazem HCl 30 mg Tablet 60 mg PO Q6HR Qty: 30 0RF Referrals: ProviderHitesh [Primary Care Provider] - Stand Alone Forms: Patient Portal/API
[2023-03-08] MEDS: ALBUTEROL HFA PREPACK 1 BOX MISC (13:50)
[2023-03-08 13:52] LABS: Lactate 2HR (Lactic Acid Rflx) 2.2 mmol/L (0.7-2.1)
== END 2023-03-08 14:00 | disposition home or self-care (01) ==
PROVIDERS: Emergency Provider Emergency Medicine
DX: U07.1 COVID-19 (principal); R07.89 Other chest pain
CPT/HCPCS: 0241U; 36415; 71045; 80053; 81003; 83605; 83690; 84145; 85025; 85610; 85730; 87040; 93005; 96360; 99284

== ENCOUNTER 2023-03-09 21:10 | Emergency (ER) | payer OTHER, SELFPAY ==
[2020-02-07 01:33] VITALS: BMI 39.4
[2023-03-09 21:13] VITALS: BP 96/65; PULSE 116; RESP 20; TEMP 37.8; O2SAT 95; BMI 36.6
[2023-03-09 21:26] VITALS: O2SAT 98
[2023-03-09 21:28] VITALS: BP 127/82; PULSE 79; O2SAT 95
[2023-03-09] MEDS: SODIUM CHLORIDE 0.9% 1,000 ML 1000 ML IV (21:40)
[2023-03-09] MEDS: ONDANSETRON 4 MG/2 ML INJ IV (21:41)
--- NOTE | 2023-03-09 21:51 | PC.NURSE ---
Ambulatory with assist to BR immediately following transfer from EMS stretcher secondary to urge to defecate.
--- NOTE | 2023-03-09 22:08 | ED.NAVMDI ---
HPI - Nausea/Vomiting/Diarrhea General Chief complaint: Nausea/Vomiting/Diarrhea Stated complaint: vomitting/diarrhea Time Seen by Provider: 03/09/23 21:25 Source: patient and EMS Mode of arrival: EMS Limitations: no limitations History of Present Illness HPI Narrative: Patient is a 57-year-old female. Has a history of gastroparesis. Also was recently diagnosed with COVID. She is here for evaluation multiple episodes of nausea and vomiting and diarrhea. She was also having quite a bit of cough. She is coughing so much it is causing her to vomit. No problems breathing. Also having other symptoms include dizziness and lightheadedness Related Data Home Medications Medication Instructions Recorded Confirmed lisinopril 20 mg tablet 20 mg PO QDAY ##0 11/12/10 02/07/20 ESOMEPRAZOLE SODIUM (NEXIUM) 20 mg PO BID ##0 04/15/11 02/07/20 LACTOBACILLUS ACIDOPHILUS 1 cap/day PO DAILY ##0 04/15/11 02/07/20 (#ACIDOPHILUS) tramadol 50 mg tablet 50 mg PO PRN ##0 04/15/11 02/07/20 verapamil 40 mg tablet 40 mg PO DAILY 10/06/18 02/07/20 cetirizine 5 mg PO Q OTHER DAY allergies 02/07/20 02/07/20 hydrochlorothiazide 12.5 mg tablet 12.5 mg PO DAILY 02/08/20 02/08/20 Previous Rx's Medication Instructions Recorded diltiazem HCl 30 mg tablet 60 mg (2 x 30 mg) PO Q6HR #30 tabs 02/08/20 benzonatate 100 mg capsule 100 mg PO Q6H PRN cough #14 caps 03/10/23 ondansetron 4 mg disintegrating 4 mg PO Q6H PRN nausea and 03/10/23 tablet vomiting #14 tabs Allergies Allergy/AdvReac Type Severity Reaction Status Date / Time gluten [GLUTEN] Allergy Unknown Verified 10/06/18 13:54 Review of Systems Review of Systems ROS Unobtainable: All systems reviewed & are unremarkable except as noted in HPI and below Patient History Medical History Palpitations Frequent headaches Hypertension History of colon polyps Celiac disease Arthritis Depression Anxiety GE reflux Surgical History Hx isai [place] History of surgery on wrist History of colonoscopy History of esophagogastroduodenoscopy (EGD) Family History Father Cancer Mother Cancer Grandfather Cardiovascular disease Social History household members: friend(s) and none Smoking Status: Former smoker alcohol intake: current Smoking Status: Former smoker alcohol intake frequency: 3 or more drinks per day Alcohol type: hard liquor Substance Use Type: does not use Exam Initial Vital Signs Initial Vital Signs: Vital Signs Temperature 100.1 F H 03/09/23 21:13 Pulse Rate 116 H 03/09/23 21:13 Respiratory Rate 20 03/09/23 21:13 Blood Pressure 96/65 03/09/23 21:13 Pulse Oximetry 95 03/09/23 21:13 Oxygen Delivery Method Room Air 03/09/23 21:13 Const General: cooperative, comfortable and No ill appearing HENMT Head: normal to inspection and normocephalic Resp Effort & Inspection: normal respiratory effort Auscultation: clear to auscultation bilaterally Cardio Rate: regular rate Rhythm: regular rhythm GI Inspection: normal to inspection and non-distended Skin General: no rashes or lesions noted Neuro General: patient alert, patient awake and moves all extremities Extrem General: capillary refill normal Course Orders Ordered: Discontinued Medications Benzonatate (Benzonatate 100 Mg Capsule) 100 mg PO NOW ONE Stop: 03/09/23 22:05 Last Admin: 03/09/23 22:15 Dose: 100 mg Documented By: SADIA Sodium Chloride (Normal Saline 0.9%) 1,000 mls @ 1,000 mls/hr IV BOLUS ONE Stop: 03/09/23 22:24 Last Infusion: 03/09/23 23:06 Dose: Infused Documented By: Admin: 03/09/23 21:40 Dose: 1,000 mls/hr Documented By: SADIA Loperamide HCl (Loperamide 2 Mg Capsule) 2 mg PO NOW ONE Stop: 03/09/23 22:05 Last Admin: 03/09/23 22:15 Dose: 2 mg Documented By: SADIA Loperamide HCl (Loperamide 2 Mg Capsule) 2 mg PO NOW ONE Stop: 03/10/23 00:00 Last Admin: 03/10/23 00:10 Dose: 2 mg Documented By: MAGEN Ondansetron HCl (Ondansetron 4 Mg/2 Ml Inj) 4 mg IV NOW ONE Stop: 03/09/23 21:26 Last Admin: 03/09/23 21:41 Dose: 4 mg Documented By: SADIA Ondansetron HCl (Ondansetron 4 Mg Odt Prepack) 1 bottle MISC DIRECTED ONE Stop: 03/10/23 00:00 Last Admin: 03/10/23 00:10 Dose: 1 bottle Documented By: MAGEN Pantoprazole Sodium (Pantoprazole 40 Mg Vial) 40 mg IV NOW ONE Stop: 03/09/23 22:10 Last Admin: 03/09/23 22:22 Dose: 40 mg Documented By: SADIA Vital Signs Vital signs: Vital Signs - 8 hr 03/09/23 21:13 03/09/23 21:26 03/09/23 21:28 Temperature 100.1 F H Pulse Rate 116 H 79 Respiratory Rate 20 Blood Pressure 96/65 Pulse Oximetry 95 98 95 Oxygen Delivery Method Room Air Room Air Room Air 03/09/23 21:28 Temperature Pulse Rate Respiratory Rate Blood Pressure 127/82 Pulse Oximetry Oxygen Delivery Method MDM - Nausea/Vomiting/Diarrhea MDM Narrative Medical decision making narrative: Not hypoxic. Lungs are clear. Was able to tolerate a small amount of liquids here in the ER. Tessalon Perles did seem to help her symptoms. She did have multiple episodes of loose stools here in the ER. Was given Imodium. No indication for antibiotics. No indication for admission to the hospital. Will discharge home with symptom treatment. He was given return precautions. She expressed understanding and agreement. Discharge Plan Departure Patient Disposition: Home Clinical Impression: Nausea, vomiting and diarrhea, COVID-19 virus infection, Chest pain Instructions: Diarrhea, Nausea and Vomiting-Adult, COVID-19 Activity Restrictions/Additional Instructions: Recommend that you continue to follow all of the current CDC guidelines with regard to quarantine. These can be found on the website. I also recommend a bland diet and drinking small amounts of fluid frequently. Using a nausea medicine as needed. Contact the primary doctor for follow-up. Prescriptions: New ondansetron 4 mg tablet,disintegrating 4 mg PO Q6H PRN (Reason: nausea and vomiting) Qty: 14 0RF benzonatate 100 mg capsule 100 mg PO Q6H PRN (Reason: cough) Qty: 14 0RF No Action lisinopril 20 MG tablet 20 mg PO QDAY Qty: 0 tramadol 50 MG tablet 50 mg PO PRN Qty: 0 ESOMEPRAZOLE SODIUM (NEXIUM) 20 mg PO BID Qty: 0 LACTOBACILLUS ACIDOPHILUS (#ACIDOPHILUS) 1 cap/day PO DAILY Qty: 0 verapamil 40 mg Tablet 40 mg PO DAILY cetirizine 10 mg 5 mg PO Q OTHER DAY Patient Comments: I cut it in half and take it every other day per my Doctor, I have been getting allergy shots for 2 years and will be able to stop taking it soon. hydrochlorothiazide 12.5 mg tablet 12.5 mg PO DAILY diltiazem HCl 30 mg Tablet 60 mg PO Q6HR Qty: 30 0RF Referrals: ProviderHitesh [Primary Care Provider] - Stand Alone Forms: Patient Portal/API
[2023-03-09] MEDS: BENZONATATE 100 MG CAPSULE PO (22:15)
[2023-03-09] MEDS: LOPERAMIDE 2 MG CAPSULE PO (22:15)
[2023-03-09] MEDS: PANTOPRAZOLE 40 MG VIAL IV (22:22)
[2023-03-10] MEDS: ONDANSETRON 4 MG ODT PREPACK 1 BOTTLE MISC (00:10)
[2023-03-10] MEDS: LOPERAMIDE 2 MG CAPSULE PO (00:10)
== END 2023-03-10 00:21 | disposition home or self-care (01) ==
PROVIDERS: Emergency Provider Emergency Medicine
DX: U07.1 COVID-19 (principal); R11.2 Nausea with vomiting, unspecified; R19.7 Diarrhea, unspecified; R07.9 Chest pain, unspecified
CPT/HCPCS: 96361; 96374; 96375; 99284; C9113; J2405